=== PATIENT | male | born 1945 | race Caucasian/White ===

== ENCOUNTER → 2025-02-02 16:27 | Outpatient (REF) | payer MEDICARE, SELFPAY | LOC: RAD 16:27 | PROVIDERS: ATTENDING PHYSICIAN Internal Medicine Critical Care Medicine; FAMILY PHYSICIAN Family Medicine | DX: R06.02 Shortness of breath (principal) | CPT/HCPCS: 71046 ==

== ENCOUNTER 2025-02-05 20:18 | Inpatient (IN) | payer MEDICARE, SELFPAY ==
[2025-02-05] VITALS (7 sets, daily range): BP systolic 127–160; BP diastolic 82–119; BMI 26.6; BMI 26.8
--- NOTE | 2025-02-05 16:40 | ED.GENMED ---
History of Present Illness
General
Chief Complaint: Cardiac Symptoms
Source: patient
Exam Limitations: none
Time Seen by Provider: 02/05/25 16:24
History of Present Illness
History of Present Illness:
79yoM with a history of atrial fibrillation, coronary artery disease, and hyperlipidemia presenting for evaluation of tachycardia. Patient has had mild dyspnea over the past year. He was worried that he had COPD with his history of tobacco use so
went to see a plastics process hand 3 days ago. While in the office, he was noted to be tachycardic and was diagnosed with atrial fibrillation. He has been in contact with his senior sql server database developer and was given a prescription for Eliquis. He took his first dose
today. His metoprolol dose was also doubled. He had an echocardiogram today and heart rate was noted to be in the 140s during this test. He was called and instructed to go to the ED for evaluation. Patient is not sure how long he has been in
A-fib because he is relatively asymptomatic. He denies any chest pain, palpitations, dizziness, syncope. Echocardiogram today showed an EF of 25-30%.
Past History
Past History
ED Past Medical History: CAD and Hypercholesterolemia
ED Past Surgical History: Cardiac (PTCA with stent times 1999, 2010)
Social History
Tobacco: Smoker
Alcohol: Occasional
Personal: Single
Living: with family
Employment: Retired
Family History
Family History: Other (Noncontributory)
Phy Exam
General Physical Exam
General Presentation: well appearing and no apparent distress
General Skin: warm and dry
General Habitus: normal
General Mental: alert
ENT Exam
ENT Exam: normocephalic
Cardiovascular Exam
Cardiovascular Exam: no edema, irregularly irregular and tachycardia
Pulmonary Exam
Pulmonary Exam: lungs clear, no respiratory distress, no rales, no crackles, no rhonchi and no wheezing
Neurological Exam
Neurological Exam: alert
Curlew Coma Scale
Eye Opening: Spontaneous
Verbal Response: Oriented
Motor Response: Obeys Commands
GCS Total Score: 15
Skin Exam
Skin Exam: normal color and warm/dry
Psychiatric Exam
Psychiatric Exam: normal mood/affect
Course
Orders/Labs/Results
Orders:
Orders
02/05/25 Dinner
Cholesterol Lowering
At Your Request: Full Participation
Cholesterol Lowering: Sodium, 2 Gram
02/05/25 15:52
Electrocardiogram (*1) Urgent
Reason for Study: Atrial Fibrillation
EKG- Treatment ONCE
02/05/25 16:39
Cardiac Monitoring- Treatment ONCE
0.9% Sodium Chloride 500 ml [Nss] 500 ml IV BOLUS
Diltiazem HCl [Cardizem] 10 mg IV NOW STA
Venous Doppler Lwr Ext Rt [US Periph Venous LOWER Ext RT] Urgent
Comment:
Reason For Exam: R leg cramps
02/05/25 16:45
Diltiazem 125 mg/125 ml Nss [Cardizem] 125 mg in 125 ml IV PER PROTOCOL
Initial dose in mg/hr, then titrate:: 5
Titrate to keep:: Heart rate 80-100 bpm
Titrate by mg/hr:: 5 mg/hr
Frequency of titrations (minutes):: 15
Maximum dose in mg/hr:: 15
02/05/25 16:50
Complete Blood Count/With Diff Urgent
Comprehensive Metabolic Panel Urgent
Magnesium Urgent
NT-proBNP Urgent
TSH Reflex To Free T4 Urgent
02/05/25 19:48
Admit/Transfer Patient As Directed
Co-Sign Provider:
Level of Care: Inpatient admission
Assign to:: IVU
Physician / Group: Diogenes
Diagnosis: Rapid arial fibrillaion, CHF exacerbation
Reason for Hospitalization: Rapid afib
Expected length of stay greater than two midnights?: Yes
ELOS- Estimated Length of Stay in days: 2
I certify the patient meets the requirements for IP care: Yes
02/05/25 19:49
Code Status As Directed
Resuscitation Status: Full Code
02/05/25 21:39
Acetaminophen [Tylenol] 650 mg PO Q6HPRN PRN
Furosemide [Lasix] 40 mg IV NOW STA
Guaifenesin/Dextromethorphan [Robitussin Dm] 5 ml PO Q6HPRN PRN
Ipratropium/Albuterol Sulfate [Duoneb] 3 ml INH R Q4HPRN PRN
02/05/25 21:39
HF DIETARY CONSULT Routine
HF EDUCATOR CONSULT Routine
Comment:
VTE Contraindication Routine
VTE Mechanical Device Contraindication: Medical Contraindication
Pharmocologic Contraindication: Medical Contraindication
Activity As Directed
Activity Level: With Assistance
Intake/ Output As Directed
Frequency: Per unit guidelines
Orthostatic Vital Signs As Directed
Orthostatic VS Frequency: Daily
Patient Education As Directed
Type: CHF folder
Comment: give on admission. Document in Interdisciplinary Education record
Sleep Apnea Assessment by RN As Directed
Comment:
Physician Instructions:
Vital Signs As Directed
Frequency: Other
Additional Instructions:: Q12 or per unit guidelines if more frequent.
Weight As Directed
Frequency: Daily
Type of Scale: Standing Scale
Comment: Daily morning weight. If unable to stand, use balanced bed scale.
Weight As Directed
Frequency: Once
Type of Scale: Standing Scale
Comment: Upon Admission. If unable to stand, use balanced bed scale.
Pulse Ox/cont/shift [RESP] Routine
Quantity: 1
Special Instructions: Daily pulse oximetry at rest. If greater than 92% at rest also obtain pulse oximetry
while ambulating as tolerated.
Rx Incentive Spirometry [RESP] Routine
Frequency: q1h while awake
02/05/25 22:00
Apixaban [Eliquis] 5 mg PO BID
02/05/25 22:30
Doxycycline [Vibramycin] 100 mg PO Q12
02/06/25 Breakfast
NPO
Allow oral meds: Yes
Allow clear liquids: Sips of Clears
Basic Metabolic Panel IN AM
Cardiovascular Evaluation IN AM
Magnesium IN AM
Phosphorus IN AM
02/06/25 08:00
Aspirin Chewable [Low Strength Aspirin] 81 mg PO DAILY
Budesonide/Formoterol 80/4.5 [Symbicort 80/4.5 Mcg Inhaler] 2 puff INH R BID
Ezetimibe [Zetia] 10 mg PO DAILY
Finasteride [Proscar] 5 mg PO DAILY
Furosemide [Lasix] 40 mg PO DAILY
Metoprolol Xl [Toprol Xl] 25 mg PO DAILY
Multivitamin [Theragran] 1 tablet PO DAILY
Pantoprazole [Protonix] 40 mg PO DAILY
Rosuvastatin Calcium [Crestor] 10 mg PO DAILY
02/07/25 06:00
Basic Metabolic Panel IN AM
02/08/25 06:00
Basic Metabolic Panel IN AM
Abnormal Lab Results
02/05/25
16:50
MCV 94.8 H fL
(80.0-94.0)
MCH 32.4 H pg
(27.0-31.0)
MPV 11.1 H fL
(7.4-10.4)
Absolute Neuts (auto) 6.7 H 10^3/uL
(1.4-6.5)
Neutrophils % 77.5 H %
(42.2-75.2)
Lymphocytes % 16.3 L %
(20.5-51.1)
BUN 23 H mg/dl
(9-20)
Glucose 136 H mg/dl
(70-99)
Total Bilirubin 1.8 H mg/dl
(0.2-1.3)
Total Protein 6.2 L g/dl
(6.3-8.2)
02/05/25 16:50
02/05/25 16:50
Vital Signs
Initial and Last Documented VS:
Initial Vital Signs
Temp Pulse Resp BP Pulse Ox
98.5 F 161 16 160/119 96
02/05/25 15:53 02/05/25 15:53 02/05/25 15:53 02/05/25 15:53 02/05/25 15:53
Last Documented Vital Signs
Temp Pulse Resp BP Pulse Ox
97.5 F 79 20 145/96 98
02/05/25 22:17 02/05/25 22:18 02/05/25 20:56 02/05/25 20:56 02/05/25 21:52
MDM/Problems Addressed
Differential Diagnosis Includes:
79yoM here with tachycardia. Found to be in afib at an outpatient pulm appt 3 days ago. Went for an echo today and found to have a HR in the 140s so sent to the ED. Relatively asymptomatic currently. Denies CP/palpitations. Unclear how long patient
has bene in afib. HR 161 on arrival. BP stable. He is non-toxic appearing. Differential diagnosis includes but is not limited to: Atrial fibrillation, CHF, thyroid dysfunction, electrolyte abnormality
Initial ED plan: Check cardiac labs, magnesium, TSH. Patient also complaining of leg cramps and is worried about a DVT so we will order venous duplex. IV Cardizem for rate control.
*EKG
Interpreted by ED Provider?: Yes
EKG Intrepretation Date: 02/05/25
Heart Rate: 141
Rate: tachycardiac
Rhythm: a-fib and PVC's
[place]: normal axis
QRS Pattern: normal QRS
Ischemia: no ischemia
*Critical Care Note
Total Time (30-74mins, 75-104mins- exclusive of procedures): 35
Update Note
Update Note:
Labs show a BNP of 2400. Electrolytes and TSH normal. Echocardiogram from earlier today shows cardiomyopathy. Heart rate improved on Cardizem gtt. Patient admitted for further management.
ED Attending Note
-
Portions of this chart may have been created with voice recognition software.� Occasional wrong word or��sound alike� substitutions may have occurred due to the inherent limitations of voice recognition software.
Discharge Plan
Departure
Patient Disposition: Admit
Date of Disposition: 02/05/25
Time of Disposition: 19:07
Presentation/result/management discussed w/ accepting MD/DO: Hospitalist
Discharge Problem:
Atrial fibrillation with rapid ventricular response
Interventions
Interventions:
*Risk Screen - Suicide Last Done: 02/05/25 22:03
*General Assessment Last Done: 02/05/25 17:03
*Neglect/Abuse Screening Last Done: 02/05/25 15:54
*ED- Fall Risk Assessment Last Done: 02/05/25 17:03
*ED COVID-19 Vaccine History Last Done: 02/05/25 17:03
*Nursing Disposition Last Done: 02/05/25 21:47
ED- Pulmonary Assessment Last Done: 02/05/25 19:44
ED- Cardiac Assessment Last Done: 02/05/25 19:44
Discharge Date and Time
Discharge Date/Time: 02/05/25 21:48
[2025-02-05] MEDS: CARDIZEM 10 MG IV (16:56)
[2025-02-05] MEDS: NSS 500 IV (16:58)
[2025-02-05] MEDS: CARDIZEM 125 IV (16:59)
[2025-02-05 17:04] LABS: % Basophils 0.3 % (0-2); % Eosinophils 0.1 % (0-6); % Immature Granulocytes 0.2 % (0-0.5); % Lymphocytes 16.3 % (20.5-51.1); % Monocytes 5.6 % (1.7-9.3); % Neutrophils 77.5 % (42.2-75.2); Absolute Lymphocytes 1.4 10^3/uL (1.2-3.4); Absolute Monocytes 0.5 10^3/uL (0.1-0.6); Absolute Neutrophils 6.7 10^3/uL (1.4-6.5); Hematocrit 45.6 % (39.0-52.0); Hemoglobin 15.6 g/dL (13.0-18.0); Mean Corp Hgb Conc. 34.2 g/dL (33.0-37.0); Mean Corpuscular Hgb 32.4 pg (27.0-31.0); Mean Corpuscular Volume 94.8 fL (80.0-94.0); Mean Platelet Volume 11.1 fL (7.4-10.4); Nucleated Red Blood Cells % 0 % (-); Platelet Count 130 10^3/uL (130-400); Red Blood Cell Count 4.81 10^6/uL (4.70-6.10); Red Cell Dist. Width 13.9 % (11.5-14.5); White Blood Cell Count 8.6 10^3/uL (4.8-10.8)
[2025-02-05 17:23] LABS: ALT (SGPT) 28 U/L (0-50); AST (SGOT) 29 U/L (17-59); Albumin 3.8 g/dl (3.5-5.0); Alkaline Phosphatase 60 U/L (38-126); Blood Urea Nitrogen 23 mg/dl (9-20); Calcium 9.2 mg/dl (8.4-10.2); Carbon Dioxide 23 mmol/L (22-30); Chloride 107 mmol/L (98-107); Estimated Creatinine Clearance 51 ml/min; Glucose 136 mg/dl (70-99); Magnesium 1.7 mg/dl (1.6-2.3); Potassium 3.8 mmol/L (3.5-5.1); Sodium 139 mmol/L (135-145); Total Bilirubin 1.8 mg/dl (0.2-1.3); Total Protein 6.2 g/dl (6.3-8.2); eGFR > 60.00
[2025-02-05 17:24] LABS: NT-proBNP 2480 pg/ml
[2025-02-05 17:46] LABS: TSH Reflex To Free T4 1.22 uIU/ml (0.47-4.68)
--- NOTE | 2025-02-05 19:37 | HPS.HSE ---
Family Physician
-
Family Physician: Daniel Davis
Chief Complaint
-
Rapid atrial fibrillation
History of Present Illness
This is a 79-year-old with past medical history significant for recent diagnosis of COPD, CAD status post multiple stents in the past, GERD, hypertension who presents to the emergency department after being found to be in rapid atrial fibrillation
while getting echo.
Patient had a visit to pulmonary a few days ago where he was found to be in atrial fibrillation. His rate was not rapid at that time. Denied having any symptoms such as dizziness palpitations chest pain or lightheadedness. He reports that he has
had significant dyspnea on exertion for at least 1 year. He also reports some pain with ambulation in his lower extremities more felt on the right. He denies any leg swelling. He denies orthopnea or PND. He denied any recent weight gain or
weight loss. Unclear how long he has been in atrial fibrillation but reported that last year he did see cardiology and was not in atrial fibrillation at that time.
Patient had a follow-up with cardiology and had an echocardiogram with plans for a SINDY and possible cardioversion on February 12. He was started on Eliquis and metoprolol.
Following is pulmonary visit the patient was diagnosed with pneumonia and was started on doxycycline. He started taking the doxycycline 2 days ago for a total of 10 doses. Overall this the patient denies any changes in his cough, denies any fevers
or chills. He denies any worsening of his exertional dyspnea.
He had an echocardiogram today showing an EF of 25 to 30%. He was in rapid A-fib at a rate of 140. On arrival in the emergency department was as high as 160.
Blood pressure was 128/82 currently pulse rate is 88 and was satting 90% on room air.
ECG shows atrial fibrillation at rate of 160.
BNP was elevated at 2480.
CBC was unremarkable. Electrolytes stable with potassium of 3.8 BUN/creatinine of 23 and 1.1.
TSH was 1.2.
Chest x-ray from 02 02 shows a left basilar consolidation.
Ultrasound of the right lower extremity is negative for DVT
Medical History
Past Medical History
Past Medical History: Reports CAD (Status post 5 stents to LAD stent in 2010), COPD, GERD and HTN
Past Surgical History: Reports None
Social History
Tobacco: Smoker
Alcohol: None
Drug: None
Personal: Single
Living: Alone
Employment: Employed
Family History
Family History: Not pertinent
Allergies / Home Medications
Allergies reflects when Allergies were last updated in [employer].
Home Medications with original date entered in [employer]
Allergy/Medication List:
Allergies
Allergy/AdvReac Type Severity Reaction Status Date / Time
No Known Allergies Allergy Verified 01/23/21 04:45
Home Medications
aspirin 81 mg chewable tablet 81 mg PO DAILY Heart Disease/Condition 05/20/11
apixaban 5 mg tablet (Eliquis) 5 mg PO BID Blood Clot Prevention/Tx 02/05/25
doxycycline hyclate 100 mg capsule 100 mg PO Q12 Infection 02/05/25
ezetimibe 10 mg tablet (Zetia) 10 mg PO DAILY High Cholesterol 02/05/25
finasteride 5 mg tablet 5 mg PO DAILY BPH 02/05/25
fluticasone fur. 100 mcg-umeclid 62.5 mcg-vilant 25 mcg inhalat.powder (Trelegy Ellipta) 1 inh inhalation DAILY Lung/Breathing Issues 02/05/25
metoprolol succinate 25 mg tablet,extended release 24 hr 25 mg PO DAILY Blood Pressure 02/05/25
multivitamin 1 tab PO DAILY Supplement 02/05/25
omeprazole 20 mg capsule,delayed release 20 mg PO DAILY Gastrointestinal Issue 02/05/25
rosuvastatin 10 mg tablet 10 mg PO DAILY High Cholesterol 02/05/25
Review of Systems
-
Constitutional: Reports No Symptoms
EENT: Reports No Symptoms
Respiratory: Reports Other (dyspnea on exertion)
Cardiac: Reports No Symptoms
Abdomen/GI: Reports No Symptoms
: Reports No Symptoms
Musculoskeletal: Reports No Symptoms
Skin: Reports No Symptoms
Neurological: Reports No Symptoms
Endocrine: Reports No Symptoms
Hematologic/Lymphatic: Reports No Symptoms
Psych: Reports No Symptoms
Physical Exam
Vital Signs
Vital Signs
Temp Pulse Resp BP Pulse Ox
98.5 F 88 25 128/82 93
02/05/25 15:53 02/05/25 18:00 02/05/25 16:49 02/05/25 17:00 02/05/25 17:04
Physical Exam
General: Well Developed
HEENT: NormoCephalic, Moist mucous membranes and Atraumatic
Respiratory: Crackles (Left basilar crackles, occasional wheezes)
Cardiac: S1/S2, Irregular Rhythm and Peripheral Edema; No Murmur or Rub
GI: Soft, Non Tender, Non Distended and Normal Bowel Sounds; No Organomegaly
Rectal: Deferred by Provider
Musculoskeletal: No Clubbing, No Cyanosis, Edema, Left Lower Extremity (1+) and Edema, Right Lower Extremity (1+)
Skin: No Rash
Neuro: AO x 3 and Nonfocal/grossly intact
Hematologic/Lymphatic: No Lymphadenopathy
Psych: Calm
Laboratory Results
-
02/05/25 16:50
02/05/25 16:50
Laboratory Results
Total Bilirubin 1.8 mg/dl (0.2-1.3) H 02/05/25 16:50
AST 29 U/L (17-59) 02/05/25 16:50
ALT 28 U/L (0-50) 02/05/25 16:50
Alkaline Phosphatase 60 U/L (38-126) 02/05/25 16:50
Data Reviewed
-
Diagnostic Radiology: Image Personally Visualized and interpreted and Report Reviewed by me
Medical Tests (Nuc Med, Echo, EKG etc): Image Personally Visualized and interpreted
Lab Data: Labs Reviewed by me
Old Records: Reviewed
Impression/Plan
-
IMPRESSION:
79-year-old presenting to the emergency department with rapid atrial fibrillation, has no symptomatic complaints otherwise.
Patient recently diagnosed with atrial fibrillation on routine visit to pulmonary. At the time he also had a left lower lobe pneumonia and was started on doxycycline. He has been recently started on Eliquis and had an echocardiogram which showed
an EF of 25 to 30% which is decreased from his prior EF of around 45% in 2021. He was found to be in rapid atrial fibrillation in the 140s at the echo and was sent to the emergency department. Patient is hemodynamically stable in the Emergency
Department, on diltiazem drip his rate is in the 80s 200s still atrial fibrillation. He appears to have mild symptoms of CHF with 1+ bilateral peripheral edema and some crackles on exam which may be due to the pneumonia versus pulmonary congestion.
BNP is elevated at 2000. He has minimal signs of COPD exacerbation at this time. He
PLAN:
Repeat atrial fibrillation
- Admit to IVU
- Continue diltiazem drip for now, plan is to uptitrate metoprolol, will increase to 50 mg metoprolol succinate daily, give 25 mg p.o. now
- Continue Eliquis at 5 mg p.o. twice daily
- TSH within normal limits, echo has been checked already and reduced
- N.p.o. with breakfast for possible early SINDY, likely patient does not need annual follow-up with cardiology for his SINDY that is scheduled on 12 February
- Cardiology consult
CHF -subacute decline in EF, trace to 1+ peripheral edema suggestive of exacerbation. Known CAD status post stenting but no current signs of acute ischemic disease.
-Start with Lasix 40 mg p.o. daily
- Daily weights
- Salt and fluid restriction
-Check A1c
- Continue rate control with metoprolol, additional GDMT per cardiology
- Cardiology consult
Pneumonia
- Doxycycline p.o. every 12
- Continue with Trelegy
- As needed DuoNebs
- No indication for steroids at this time
DVT prophylaxis�on apixaban
CODE STATUS�full code
[2025-02-05] MEDS: LOPRESSOR 25 MG PO (20:33)
[2025-02-05] MEDS: TYLENOL 650 MG PO (20:53)
[2025-02-05] MEDS: LASIX 40 MG IV (22:18)
[2025-02-05] MEDS: KCL 40 MEQ PO (22:19)
[2025-02-05] MEDS: ELIQUIS 5 MG PO (22:19)
[2025-02-05] MEDS: VIBRAMYCIN 100 MG PO (22:19)
--- NOTE | 2025-02-05 22:39 | PTCARENOTE ---
Patient arrived into room 3349 from ER. [facility] gtt infusing @ 5mg/hr. Pt ambulated from stretcher to the bed. Steady gait. Afib on tele, HR 70-90s. Pt denies pain; reports leg cramps have subsided since received po tylenol. Admission questions
done. Pt updated on plan of care; NPO @ [place] for SINDY/CV. IV Lasix administered per the MAR; pt verbalized understanding the importance of accurate I/Os. Avinger box provided as pt stated he has not eaten all day. denies nutrition consult. call herbert and
tray table within reach.
[2025-02-06] VITALS (20 sets, daily range): BP systolic 96–147; BP diastolic 60–102; PULSE 65–113; BMI 26.1
[2025-02-06 05:23] LABS: Blood Urea Nitrogen 23 mg/dl (9-20); Carbon Dioxide 28 mmol/L (22-30); Chloride 108 mmol/L (98-107); Estimated Creatinine Clearance 46 ml/min; Glucose 92 mg/dl (70-99); HDL Cholesterol 45 mg/dl; LDL Cholesterol, Calculated 37 mg/dl; Magnesium 1.7 mg/dl (1.6-2.3); Phosphorus 3.5 mg/dl (2.5-4.5); Potassium 4.3 mmol/L (3.5-5.1); Sodium 141 mmol/L (135-145); Total Cholesterol 97 mg/dl (50-199); Triglyceride 78 mg/dl (10-149); Very Low Density Lipoprotein 15 mg/dl (0-30); eGFR > 60.00
--- NOTE | 2025-02-06 05:31 | PTCARENOTE ---
Patient voided about 1900cc of urine since IV Lasix administration last night. Cardizem gtt stopped this morning; refer to worklist. Afib on tele. HR 60s. BP soft. Asymptomatic.
[2025-02-06] MEDS: SPIRIVA RESPIMAT 2.5 MCG 2 PUFF INH (07:30)
[2025-02-06] MEDS: SYMBICORT 80/4.5 MCG INHALER 2 PUFF INH ×2 (07:31→19:34)
[2025-02-06] MEDS: CRESTOR 10 MG PO (07:52)
[2025-02-06] MEDS: LASIX 40 MG PO (07:52)
[2025-02-06] MEDS: THERAGRAN 1 TABLET PO (07:52)
[2025-02-06] MEDS: ZETIA 10 MG PO (07:53)
[2025-02-06] MEDS: TOPROL XL 25 MG PO (07:54)
[2025-02-06] MEDS: PROSCAR 5 MG PO (07:54)
[2025-02-06] MEDS: ELIQUIS 5 MG PO ×2 (07:54→19:55)
[2025-02-06] MEDS: VIBRAMYCIN 100 MG PO ×2 (07:54→19:55)
[2025-02-06] MEDS: PROTONIX 40 MG PO (07:55)
--- NOTE | 2025-02-06 08:29 | CON.CAR ---
Addendum entered and electronically signed by Len Butler MD 02/06/25 10:29:
I saw and examined the patient.
The Sander Setter's note was reviewed and I agree with the note.
Comment:
GEN: No distress, awake, Ox3
HEENT: supple, anicteric, mmm
LUNGS: scatt rhonchi
CV: Irreg, S1/S2, 09/08 syst LSB, no gallop
ABD: soft, BS+, NT/ND
EXT: No edema
NEURO: Gross non-focal
SKIN: No rash
Plan:
79-year-old male with past medical history of multivessel coronary artery disease/AR, COPD with continued tobacco use, hypertension, hyperlipidemia presents with progressive shortness of breath and dyspnea over the past several months. He was seen
earlier this week by pulmonary and cardiology office with new atelectasis and new onset atrial fibrillation with rapid ventricular rates. He was initiated on Eliquis and his Toprol was increased. He had an echocardiogram on February 06 with revealed a
decreased EF of 25 to 30% and was sent to the emergency room for further evaluation. He denies chest pain, shortness of breath, orthopnea but does have some intermittent leg edema and fatigue.
I reviewed his echocardiogram from yesterday and compared it to the study in September 2021. Ejection fraction has declined although it appears to be globally hypokinetic, this clearly could be from atrial fibrillation.
We will start with checking a troponin. If troponin is normal I would pursue rhythm control and address his atrial fibrillation first. He is now off the Cardizem drip and remains in rate controlled A-fib. I would increase his Toprol to 25 mg
twice daily. And continue Eliquis if the troponin is negative. We would then reassess him in the a.m. to decide whether he needs to stay as an inpatient for SINDY cardioversion or whether this could be done as an outpatient. He already has this
scheduled for mid next week.
If his troponin is abnormal, we would stop Eliquis, start IV heparin and pursue cardiac catheterization on Sunday. For now continue medical therapy for his coronary artery disease. Continue aspirin, Toprol, Crestor, Zetia, and lisinopril. EKG
with A-fib with nonspecific T wave abnormalities.
He does have some acute heart failure with reduced ejection fraction. Will give additional Lasix 20 mg IV today to help unload his ventricle some.
Continue Toprol and lisinopril. Will check on cost of Farxiga for him.
We discussed smoking cessation. He should continue his Symbicort and Spiriva.
Original Note:
Consultation
Consultation Request
Date/Time Consultation Requested: 02/05/2025
Date/Time Consultation Performed: 02/05/2025
Requesting Provider: Dr. Shetty
Performing Provider: Anais Velez PA-C for Dr. Butler
Reason for Consultation: A-fib with rapid ventricular response, heart failure, new cardiomyopathy
Medical History
-
History of Present Illness:
Patient is an 79-year-old male with past medical history significant for coronary artery disease with prior AR and stenting of OM, circumflex, LAD and RCA, COPD with ongoing tobacco abuse, hypertension, hyperlipidemia, BPH and GERD who reports
progressively worsening dyspnea on exertion over the last 2 months. Some orthopnea/PND recently as well. No weight gain or edema, actually has lost weight. He was seen by outpatient senior government program analyst on 02/02/2025 who ordered chest x-ray which
demonstrated concern for pneumonia versus left basilar atelectasis. He was found to be in atrial fibrillation with rapid ventricular response which was new diagnosis. He was seen in outpatient cardiology office on 02/04/2025 and was started on
Eliquis with up titration of Toprol. Symptoms continued to get worse so he presented to emergency department 02/05/2025. He remained in atrial fibrillation with rapid ventricular response, proBNP noted to be elevated at 2480. He was provided 40 mg
IV Lasix and was started on IV diltiazem drip. Diltiazem gtt d/marly in am of 02/06 for hypotension/bradycardia and pauses. He underwent an echocardiogram which demonstrated newly reduced ejection fraction of 25 to 30%.
Currently patient denies CP, SOB, dizziness, palpitations, edema or orthopnea/PND.
Past medical history:
Coronary artery disease
History of STEMI 2001, 2010
s/p stent of proximal OM1 and circumflex 04/2000
s/p LAD STEVE x 2 mid to distal LAD 05/2011
s/p STEVE of distal RCA into RPDA 05/2011
Hypertension
Hyperlipidemia
BPH
COPD
Ongoing tobacco user
GERD
Lumbar spine stenosis
Past Medical History
Past Medical History: Other (See HPI)
Past Surgical History: Cardiac (OM1 and circumflex stent 2001, RCA/RPDA stent 2010, LAD stent times 10/2010) and Other (Cataract extraction, thumb surgery)
Social History
Tobacco: Smoker
Drug: None
Personal:
Family History
Family History: Other (Father of stroke, had CAD, mother COPD and alcohol abuse)
Allergies / Home Medications
Allergy/AdvReac Type Severity Reaction Status Date / Time
No Known Allergies Allergy Verified 01/23/21 04:45
�Medication �Instructions �Recorded �Confirmed �Type
aspirin 81 mg chewable tablet 81 mg PO DAILY Heart 05/20/11 02/05/25 History
Disease/Condition
apixaban 5 mg tablet (Eliquis) 5 mg PO BID Blood Clot 02/05/25 02/05/25 History
Prevention/Tx
doxycycline hyclate 100 mg capsule 100 mg PO Q12 Infection 02/05/25 02/05/25 History
ezetimibe 10 mg tablet (Zetia) 10 mg PO DAILY High Cholesterol 02/05/25 02/05/25 History
finasteride 5 mg tablet 5 mg PO DAILY BPH 02/05/25 02/05/25 History
fluticasone fur. 100 mcg-umeclid 1 inh inhalation DAILY 02/05/25 02/05/25 History
62.5 mcg-vilant 25 mcg Lung/Breathing Issues
inhalat.powder (Trelegy Ellipta)
metoprolol succinate 25 mg 25 mg PO DAILY Blood Pressure 02/05/25 02/05/25 History
tablet,extended release 24 hr
multivitamin 1 tab PO DAILY Supplement 02/05/25 02/05/25 History
omeprazole 20 mg capsule,delayed 20 mg PO DAILY Gastrointestinal 02/05/25 02/05/25 History
release Issue
rosuvastatin 10 mg tablet 10 mg PO DAILY High Cholesterol 02/05/25 02/05/25 History
Review of Systems
-
History Source: Patient
All other systems: Negative unless noted
Physical Exam
Vital Signs
Temp Pulse Resp BP Pulse Ox
98.4 F 79 16 120/89 96
02/06/25 05:51 02/06/25 07:54 02/06/25 07:37 02/06/25 07:54 02/06/25 07:37
GEN: No distress, awake, Ox3
HEENT: supple, anicteric, mmm
LUNGS: absent BS at right base and crackles at left base, no wheezes
CV: irreg irreg, S1/S2, no murmur, rub or gallop
ABD: soft, BS+, NT/ND
EXT: No edema, clubbing or cyanosis
NEURO: Gross non-focal
SKIN: No rash, warm. dry
Lab Results
02/05/25 16:50
02/06/25 04:22
[id number]-V-[id number] Pept 2480 pg/ml 02/05/25 16:50
Impression / Plan
-
PCP: Daniel Davis
Oven Drier Tender: Dr. Pramod Mckenna
Impression:
Presented 02/05/2025 with ongoing shortness of breath
Atrial fibrillation with rapid ventricular response, new diagnosis
Acute heart failure with reduced ejection fraction, proBNP 2480
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
Pneumonia
Coronary artery disease
History of STEMI 2010
s/p stent of proximal OM1 and circumflex 04/2000
s/p LAD STEVE x 2 mid to distal LAD 05/2011
s/p STEVE of distal RCA into RPDA 05/2011
Hypertension
Hyperlipidemia
BPH
COPD
Ongoing tobacco user
GERD
Lumbar spine stenosis
Echo 02/05/2025: EF 25 to 30%, global hypokinesis. Mild to moderate MR. Mild to moderate AI. Mild TR. PAP 40 mmHg. Dilated sinus of Valsalva 4.0 cm. Ascending aorta and aortic arch are normal in caliber.
Echo 09/15/2021: EF 45 to 50%. Global hypokinesis. Stage I DD. Mild to moderate AI. PAP 25 mmHg
Exercise nuclear stress test 07/23/2017: 6: 00, 7.0 METS, 96% maximum predicted heart rate. EKG negative for ischemia. Minimally reversible defect in lateral, inferolateral and apical segment consistent with infarction with minor residual ischemia
versus soft tissue attenuation
Plan:
-Presented 02/05/2025 with worsening shortness of breath for 2 months and recent orthopnea/PND. Concern for pneumonia on outpatient chest x-ray 02/02/2025 and new diagnosis of paroxysmal atrial fibrillation with rapid ventricular response of unknown
duration
-Atrial fibrillation with rapid ventricular response unknown duration.
Heart rates improved with IV Diltiazem gtt. Found to have bradycardia w/ pauses and hypotension so gtt stopped in am of 02/06. Heart rates remain controlled off gtt.
Continue Toprol. Consider increase to 25 mg BID of HR and BP allows
New to Eliquis 02/04. Continue OAC
Likely would benefit from islam of sinus rhythm. Timing to be determined by potential ischemia eval given newly reduced EF
-Acute heart failure with reduced ejection fraction, proBNP 2480
Cardiomyopathy, EF 25-30% (new finding). Unclear if ischemic related or tachycardia mediated given PAF w/ RVR
ECG without ischemic changes and pt denies CP. Check troponin
Will need to consider ischemic eval
Continue Toprol, Add Lisinopril 5 mg daily (02/06/2025)
Ongoing diuresis with Lasix
Heart failure education
-Pneumonia
Continue antibiotics per primary service
Plan discussed with pt, nursing and primary service
time spent 77 minutes
HPI 02/06/2025:
Patient is an 79-year-old male with past medical history significant for coronary artery disease with prior AR and stenting of OM, circumflex, LAD and RCA, COPD with ongoing tobacco abuse, hypertension, hyperlipidemia, BPH and GERD who reports
progressively worsening dyspnea on exertion over the last 2 months. Some orthopnea/PND recently as well. No weight gain or edema, actually has lost weight. He was seen by outpatient senior government program analyst on 02/02/2025 who ordered chest x-ray which
demonstrated concern for pneumonia versus left basilar atelectasis. He was found to be in atrial fibrillation with rapid ventricular response which was new diagnosis. He was seen in outpatient cardiology office on 02/04/2025 and was started on
Eliquis with up titration of Toprol. Symptoms continued to get worse so he presented to emergency department 02/05/2025. He remained in atrial fibrillation with rapid ventricular response, proBNP noted to be elevated at 2480. He was provided 40 mg
IV Lasix and was started on IV diltiazem drip. Diltiazem gtt d/marly in am of 02/06 for hypotension/bradycardia and pauses. He underwent an echocardiogram which demonstrated newly reduced ejection fraction of 25 to 30%.
Currently patient denies CP, SOB, dizziness, palpitations, edema or orthopnea/PND.
Data Reviewed
-
EKG: Report Reviewed by me, Discussed with Physician, Discussed with Nurse and Discussed with Patient
Radiology: Report Reviewed by me, Discussed with Physician, Discussed with Nurse and Discussed with Patient
Medical Tests (Nuc Med, Echo etc): Report Reviewed by me, Discussed with Physician, Discussed with Nurse and Discussed with Patient
Labs: Labs Reviewed by me, Discussed with Physician, Discussed with Nurse and Discussed with Patient
Old Records: Reviewed
--- NOTE | 2025-02-06 09:02 | PTCARENOTE ---
Patient received from retail shift manager. Patient resting comfortably in bed. AAO, VSS. No events noted overnight. No complaints of pain. Patient is IVU overflow. No fluids via IV. Cardizem gtt has been off since approx 0400 this AM and rate remains
appropriate. Patient for possible SINDY with cardioversion. Call godinez in reach.
[2025-02-06] MEDS: ZESTRIL 5 MG PO (10:26)
[2025-02-06 12:57] LABS: Troponin I 0.205 ng/ml
--- NOTE | 2025-02-06 13:24 | W.PN.HOSP.TC ---
Today's Communication/Plan
-
Assessment / Plan
Assessment / Plan
General: No Apparent Distress, Comfortable and Conversant
HEENT: NormoCephalic, Moist mucous membranes, Atraumatic
Respiratory: Clear and Non Labored Respirations
Cardiac: S1/S2 and irregular rhythm; heart rate 80-110
GI: Soft, Non Tender, Non Distended and Normal Bowel Sounds
Musculoskeletal: No Edema, no deformity
Skin: Warm and dry
: NO Rivas
Neuro: Awake, Alert, Nonfocal/grossly intact
Psych: Calm and Intact Judgment/Insight
Mr. Albright is an 79-year-old male with a medical history of CAD (multiple stents), hypertension, and recent diagnosis of COPD and pneumonia who presented after being found to be in rapid A-fib while getting an echocardiogram. He was initially noted
to be in A-fib a few days prior to arrival during his outpatient pulmonology evaluation, however his heart rate was well-controlled at that time. A-fib is a new diagnosis for him. He denies any specific symptoms recently although he does note
significant dyspnea on exertion for the past year and was recently diagnosed with COPD by his crm marketing manager. He had been started on Eliquis and metoprolol and had a planned appointment for SINDY and possible cardioversion on 02/12/2025. He was
started on doxycycline 2 days prior to arrival for treatment of left lower lobe pneumonia diagnosed by his crm marketing manager during office visit. In the ED he was in A-fib with a heart rate of 140. He remained normotensive and was breathing
comfortably and saturating appropriately on room air. His echocardiogram shows significantly reduced ejection fraction of 25 to 30% with global hypokinesis. He was started on diltiazem drip and admitted for further evaluation and management.
A-fib with RVR:
- New diagnosis
- Heart rate currently well-controlled on oral metoprolol succinate 25 mg daily
- Diltiazem drip discontinued
- Continue anticoagulation with Eliquis
- Ischemic evaluation ongoing, if troponins elevated and uptrending most once anticoagulation to IV heparin and plan for cardiac cath on Sunday
- Appreciate cardiology guidance
HFrEF:
- New diagnosis, EF 25 to 30% with global hypokinesis
- Unclear etiology, ischemic workup ongoing, possibly due to longstanding undiagnosed A-fib
- Currently appears compensated
- Continue beta-blockade with metoprolol succinate 25 mg daily
- Afterload reduction with lisinopril 5 mg daily
- Diuresis with oral Lasix 40 mg daily for now
COPD:
- Recent diagnosis by outpatient crm marketing manager
- Continue scheduled breathing treatments with additional as needed
- Encourage smoking cessation
Community-acquired pneumonia:
- Left lower lobe
- Continue doxycycline
- Pulmonary toileting
CAD:
- Chronic, stable, history of PCI with multiple stents
- Continue aspirin and statin
DVT prophylaxis: Eliquis
CODE STATUS: Full code
Total time spent on today's encounter was 40 minutes
Anticipated Discharge: > 48 hours
Subjective/Interval History
-
Date of Service: February 06, 2025
Patient was seen and examined at bedside this morning. Reports feeling well despite dealing with rapid A-fib, COPD, and pneumonia. Heart rate currently better controlled at rest but does have spikes with exertion.
Objective Data
-
Labs:
Laboratory Results
02/06/25
04:22
Sodium 141
Potassium 4.3
Chloride 108 H
Carbon Dioxide 28
BUN 23 H
Creatinine 1.2
Glucose 92
Calcium 9.0
Vital Signs:
Vital Signs
Temp Pulse Resp BP Pulse Ox
97.7 F 88 16 133/97 96
02/06/25 11:09 02/06/25 10:26 02/06/25 07:37 02/06/25 10:26 02/06/25 07:37
I&O
02/05/25 02/06/25 02/07/25
06:59 06:59 06:59
Intake Total 240 / 240
Output Total 1924
Balance -1684 /
Review of Systems
-
History Source: Patient
All other systems: Reviewed and negative
Physical Exam
-
General: No Apparent Distress
--- NOTE | 2025-02-06 14:59 | PTCARENOTE ---
Report called to [facility].
--- NOTE | 2025-02-06 15:44 | PTCARENOTE ---
Patient transported to via volunteer transport. Patient left with all known belongings.
--- NOTE | 2025-02-06 16:29 | PTCARENOTE ---
Received pt from IMU via wheelchair, accompanied by volunteer. Pt AAO x3, MATTHEWS well, able to transfer to bed without assistance; denies weakness/dizziness. VSS. Placed on telemetry: afib. On room air- pulse ox 97%, no SOB noted. Abd soft,
rounded, BS (+). Urinal at bedside; pt instructed to void in urinal to monitor output. Afebrile; skin W/D/I. Oriented to 4[place],currently resting comfortably. Will continue to monitor.
[2025-02-07 03:05] VITALS: BP 121/77
[2025-02-07 06:00] VITALS: BMI 25.6
[2025-02-07 07:15] VITALS: BP 147/96
[2025-02-07 07:37] LABS: Blood Urea Nitrogen 21 mg/dl (9-20); Calcium 8.7 mg/dl (8.4-10.2); Carbon Dioxide 28 mmol/L (22-30); Chloride 105 mmol/L (98-107); Estimated Creatinine Clearance 46 ml/min; Glucose 89 mg/dl (70-99); Potassium 3.8 mmol/L (3.5-5.1); Sodium 140 mmol/L (135-145); eGFR > 60.00
[2025-02-07] MEDS: NON-FORMULARY ITEM 1 INH INH (08:19)
[2025-02-07] MEDS: PROTONIX 40 MG PO (09:13)
[2025-02-07] MEDS: CRESTOR 10 MG PO (09:14)
[2025-02-07] MEDS: TOPROL XL 25 MG PO ×2 (09:14→19:52)
[2025-02-07] MEDS: ZETIA 10 MG PO (09:14)
[2025-02-07] MEDS: VIBRAMYCIN 100 MG PO ×2 (09:14→19:52)
[2025-02-07] MEDS: PROSCAR 5 MG PO (09:15)
[2025-02-07] MEDS: ZESTRIL 5 MG PO (09:15)
[2025-02-07] MEDS: ELIQUIS 5 MG PO (09:15)
[2025-02-07] MEDS: LASIX 40 MG PO (09:15)
[2025-02-07] MEDS: THERAGRAN 1 TABLET PO (09:15)
[2025-02-07 11:05] VITALS: BP 146/85
--- NOTE | 2025-02-07 11:22 | CM ---
CM met with pt at bedside.
Pt lives alone 2 story condo with no concerns. Ind prior to admit with amb/adl's using no AD.
+ Poker Dealer.
PCP is Daniel Davis and pharmacy is [facility].
No HC or SNF history.
Anticipated dispo home no needs.
--- NOTE | 2025-02-07 11:50 | W.PN.CARDCBS ---
Today's Communication / Plan
-
Stop Eliquis
Start heparin
Increase metoprolol
Add spironolactone
Eventual SGLT2 antagonist cath on Sunday
Impression / Plan
-
PCP: Daniel Davis
Die Cast Engineer: Dr. Pramod Mckenna
Impression:
Presented 02/05/2025 with ongoing shortness of breath
Atrial fibrillation with rapid ventricular response, new diagnosis
Acute heart failure with reduced ejection fraction, proBNP 2480
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
Pneumonia
Coronary artery disease
History of STEMI 2010
s/p stent of proximal OM1 and circumflex 04/2000
s/p LAD STEVE x 2 mid to distal LAD 05/2011
s/p STEVE of distal RCA into RPDA 05/2011
Hypertension
Hyperlipidemia
BPH
COPD
Ongoing tobacco user
GERD
Lumbar spine stenosis
Echo 02/05/2025: EF 25 to 30%, global hypokinesis. Mild to moderate MR. Mild to moderate AI. Mild TR. PAP 40 mmHg. Dilated sinus of Valsalva 4.0 cm. Ascending aorta and aortic arch are normal in caliber.
Echo 09/15/2021: EF 45 to 50%. Global hypokinesis. Stage I DD. Mild to moderate AI. PAP 25 mmHg
Exercise nuclear stress test 07/23/2017: 6: 00, 7.0 METS, 96% maximum predicted heart rate. EKG negative for ischemia. Minimally reversible defect in lateral, inferolateral and apical segment consistent with infarction with minor residual ischemia
versus soft tissue attenuation
Plan:
Despite his reduced EF and A-fib with relatively rapid ventricular response he looks fairly well.
Currently on Eliquis. He is to undergo cardiac catheterization on Sunday. Will stop Eliquis and start heparin.
Add spironolactone as part of optimizing GDMT. Probably also be SGLT2 antagonist, could consider Entresto over ERIKA.
Now on oral Lasix. Volume status is reasonable.
His ventricular response is still somewhat rapid. Will double metoprolol ER to 25 mg twice daily.
After catheterization we can decide best strategy regarding his rhythm. He has been added to the schedule for Sunday.
Encouraged to stop smoking.
Defer antibiotics to hospitalist service.
HPI 02/06/2025:
Patient is an 79-year-old male with past medical history significant for coronary artery disease with prior PR and stenting of OM, circumflex, LAD and RCA, COPD with ongoing tobacco abuse, hypertension, hyperlipidemia, BPH and GERD who reports
progressively worsening dyspnea on exertion over the last 2 months. Some orthopnea/PND recently as well. No weight gain or edema, actually has lost weight. He was seen by outpatient sas clinical programmer on 02/02/2025 who ordered chest x-ray which
demonstrated concern for pneumonia versus left basilar atelectasis. He was found to be in atrial fibrillation with rapid ventricular response which was new diagnosis. He was seen in outpatient cardiology office on 02/04/2025 and was started on
Eliquis with up titration of Toprol. Symptoms continued to get worse so he presented to emergency department 02/05/2025. He remained in atrial fibrillation with rapid ventricular response, proBNP noted to be elevated at 2480. He was provided 40 mg
IV Lasix and was started on IV diltiazem drip. Diltiazem gtt d/marly in am of 02/06 for hypotension/bradycardia and pauses. He underwent an echocardiogram which demonstrated newly reduced ejection fraction of 25 to 30%.
Currently patient denies CP, SOB, dizziness, palpitations, edema or orthopnea/PND.
Progress Note - Die Cast Engineer
Subjective
Date of Service: February 07, 2025:
79-year-old man admitted February 05 with worsening dyspnea on exertion, with newly discovered atrial fibrillation February 02. Despite Toprol and Eliquis, dyspnea worsened, proBNP 2480, was admitted with new EF of 25 to 30%, troponin elevated to 0.22.
PMH: STEMI 2001, 2010, PCI to OM1 and circumflex 1999, LAD drug-eluting stent x 2 mid and distal LAD 2010, drug-eluting stent to distal RCA in 2 right PDA 2010, hypertension, hyperlipidemia, COPD, ongoing tobacco use, GERD, lumbar stenosis
Current meds: Apixaban 5 mg p.o. twice daily Doxycycline 100 mg every 12, ezetimibe 10 mg a day, Proscar 5 mg daily, metoprolol ER 25 mg daily, pantoprazole 40 mg a day, rosuvastatin 10 mg a day, furosemide 40 mg daily, lisinopril 5 mg daily, Trelegy
He says that he feels well.
147/96, 121/77, respiratory 16, afebrile, sats 94%, weight is 74 kg, down 1.6 kg, if accurate 4 kg since admission, head neck exam unremarkable, some rhonchi, lungs otherwise relatively clear JVD okay, regular rate and rhythm, not much edema
BUN/creatinine are 21 and 1.2, potassium is 3.8
Objective
Labs:
02/05/25 16:50
02/07/25 06:23
Labs
Hgb 15.6 g/dL (13.0-18.0) 02/05/25 16:50
Hct 45.6 % (39.0-52.0) 02/05/25 16:50
Plt Count 130 10^3/uL (130-400) 02/05/25 16:50
Sodium 140 mmol/L (135-145) 02/07/25 06:23
Potassium 3.8 mmol/L (3.5-5.1) 02/07/25 06:23
BUN 21 mg/dl (9-20) H 02/07/25 06:23
Creatinine 1.2 mg/dL (0.7-1.3) 02/07/25 06:23
Glucose 89 mg/dl (70-99) 02/07/25 06:23
Troponins
02/06/25 02/06/25
12:18 18:01
Troponin I 0.205 H* 0.220 H*
Vital Signs and I&O:
Vital Signs
Temp Pulse Resp BP Pulse Ox
36.2 C 92 16 147/96 94
02/07/25 07:15 02/07/25 09:14 02/07/25 08:22 02/07/25 09:14 02/07/25 08:22
Vital Signs
Temp Pulse Resp BP Pulse Ox
36.2 C 92 16 147/96 94
02/07/25 07:15 02/07/25 09:14 02/07/25 08:22 02/07/25 09:14 02/07/25 08:22
Intake & Output
02/05/25 02/06/25 02/07/25 02/08/25
07:59 07:59 07:59 07:59
Intake Total 240 / 240 960 / 960
Output Total 1925 / 1925 1150 / 1150
Balance -1685 / -1685 -190 / -190
Physical Exam
Physical Exam
See above
[2025-02-07 12:36] LABS: Hematocrit 48.4 % (39.0-52.0); Hemoglobin 16.9 g/dL (13.0-18.0); Mean Corp Hgb Conc. 34.9 g/dL (33.0-37.0); Mean Corpuscular Hgb 32.8 pg (27.0-31.0); Mean Platelet Volume 11.1 fL (7.4-10.4); Platelet Count 145 10^3/uL (130-400); Red Blood Cell Count 5.15 10^6/uL (4.70-6.10); Red Cell Dist. Width 13.7 % (11.5-14.5); White Blood Cell Count 8.3 10^3/uL (4.8-10.8)
--- NOTE | 2025-02-07 12:40 | W.PN.HOSP.TC ---
Today's Communication/Plan
-
Assessment / Plan
Assessment / Plan
General: No Apparent Distress, Comfortable and Conversant
HEENT: NormoCephalic, Moist mucous membranes, Atraumatic
Respiratory: Clear and Non Labored Respirations
Cardiac: S1/S2 and irregular rhythm; heart rate 80-100
GI: Soft, Non Tender, Non Distended and Normal Bowel Sounds
Musculoskeletal: No Edema, no deformity
Skin: Warm and dry
: NO Rivas
Neuro: Awake, Alert, Nonfocal/grossly intact
Psych: Calm and Intact Judgment/Insight
Mr. Albright is an 79-year-old male with a medical history of CAD (multiple stents), hypertension, and recent diagnosis of COPD and pneumonia who presented after being found to be in rapid A-fib while getting an echocardiogram. He was initially noted
to be in A-fib a few days prior to arrival during his outpatient pulmonology evaluation, however his heart rate was well-controlled at that time. A-fib is a new diagnosis for him. He denies any specific symptoms recently although he does note
significant dyspnea on exertion for the past year and was recently diagnosed with COPD by his mathematician. He had been started on Eliquis and metoprolol and had a planned appointment for SINDY and possible cardioversion on 02/12/2025. He was
started on doxycycline 2 days prior to arrival for treatment of left lower lobe pneumonia diagnosed by his mathematician during office visit. In the ED he was in A-fib with a heart rate of 140. He remained normotensive and was breathing
comfortably and saturating appropriately on room air. His echocardiogram shows significantly reduced ejection fraction of 25 to 30% with global hypokinesis. He was started on diltiazem drip and admitted for further evaluation and management.
A-fib with RVR:
- New diagnosis
- Increased metoprolol succinate to 25 mg twice daily
- Troponins elevated but stable, transitioning anticoagulation to IV heparin and plan for cardiac cath on Sunday, reinitiate Eliquis postprocedure
- Appreciate cardiology guidance
HFrEF:
- New diagnosis, EF 25 to 30% with global hypokinesis
- Unclear etiology, cardiac cath planned for Friday 02/09
- Currently appears compensated
- Continue beta-blockade with metoprolol succinate 25 mg twice daily
- Afterload reduction with lisinopril 5 mg daily
- Diuresis with oral Lasix 40 mg daily for now
- Added spironolactone
- Eventually consider adding SGLT2 inhibitor
COPD:
- Recent diagnosis by outpatient mathematician
- Continue scheduled breathing treatments with additional as needed
- Encourage smoking cessation
Community-acquired pneumonia:
- Left lower lobe
- Continue doxycycline
- Pulmonary toileting
CAD:
- Chronic, stable, history of PCI with multiple stents
- Continue aspirin and statin
DVT prophylaxis: IV heparin drip
CODE STATUS: Full code
Total time spent on today's encounter was 40 minutes
Anticipated Discharge: > 48 hours
Subjective/Interval History
-
Date of Service: February 07, 2025
Patient was seen and examined at bedside this morning. Troponins elevated but stable. He has no chest pain or shortness of breath at rest but does become dyspneic with minimal exertion. Planning cardiac cath on Sunday.
Objective Data
-
Labs:
Laboratory Results
02/07/25 02/07/25
06:23 12:14
WBC 8.3
Hgb 16.9
Hct 48.4
Plt Count 145
APTT Pending
Sodium 140
Potassium 3.8
Chloride 105
Carbon Dioxide 28
BUN 21 H
Creatinine 1.2
Glucose 89
Calcium 8.7
Vital Signs:
Vital Signs
Temp Pulse Resp BP Pulse Ox
98.0 F 99 16 146/85 95
02/07/25 11:05 02/07/25 11:05 02/07/25 11:05 02/07/25 11:05 02/07/25 11:05
I&O
02/06/25 02/07/25 02/08/25
06:59 06:59 06:59
Intake Total 240 / 240 960 / 960
Output Total 1925 / 1925 1150 / 1150
Balance -1685 / -1685 -190 / -190
Review of Systems
-
History Source: Patient
All other systems: Reviewed and negative
Respiratory: Reports Trouble Breathing (With minimal exertion)
Physical Exam
-
General: No Apparent Distress
[2025-02-07 12:42] LABS: APTT 34.4 Sec (23.4-35.0)
[2025-02-07] MEDS: LOW STRENGTH ASPIRIN 81 MG PO (13:32)
[2025-02-07] MEDS: ALDACTONE 12.5 MG PO (13:32)
[2025-02-07 15:20] VITALS: BP 129/83
--- NOTE | 2025-02-07 15:24 | CM ---
CM called pt's pharmacy, [facility] [phone] who provided pt's presription plan info:
[facility] [phone] ID # [id number]
Called and spoke with Michelle.
Pt is still in the deductible phase (approx. $176 met toward $590) so cost for Jardiance 10mg daily and Farxiga 10mg daily are as follow:
Jardiance 10mg 30 day= $448.75
Jardiance 10mg 90 day=$692.97
Farxiga 10mg 30 day=$442.98
Farxiga 10mg 90 day=$675.67
Once pt meets deductible, the cost will be:
Jardiance 10mg 30 day= $122.19
Jardiance 10mg 90 day= $366.41
Farxiga 10mg 30 day= $116.42
Farxiga 10mg 90 day=$349.11
[2025-02-07] MEDS: CARAFATE 1 GRAM PO ×3 (16:14→21:05)
[2025-02-07 19:10] VITALS: BP 115/77
[2025-02-07] MEDS: HEPARIN 2000 UNITS IV (19:52)
[2025-02-07] MEDS: HEPARIN 25000 UNITS/250 ML IV (19:54)
[2025-02-07 23:20] VITALS: BP 130/77
[2025-02-08 02:24] LABS: APTT 115.4 Sec (23.4-35.0)
[2025-02-08 03:19] VITALS: BP 121/79
[2025-02-08 06:00] VITALS: BMI 25.1
[2025-02-08 07:03] LABS: Blood Urea Nitrogen 23 mg/dl (9-20); Calcium 8.8 mg/dl (8.4-10.2); Carbon Dioxide 30 mmol/L (22-30); Chloride 103 mmol/L (98-107); Estimated Creatinine Clearance 42 ml/min; Glucose 87 mg/dl (70-99); Potassium 3.9 mmol/L (3.5-5.1); Sodium 140 mmol/L (135-145); eGFR 55.53
[2025-02-08 07:30] VITALS: BP 140/89
[2025-02-08] MEDS: NON-FORMULARY ITEM 1 INH INH (08:13)
[2025-02-08] MEDS: CRESTOR 10 MG PO (08:31)
[2025-02-08] MEDS: ZETIA 10 MG PO (08:31)
[2025-02-08] MEDS: PROTONIX 40 MG PO (08:31)
[2025-02-08] MEDS: ZESTRIL 5 MG PO (08:32)
[2025-02-08] MEDS: PROSCAR 5 MG PO (08:32)
[2025-02-08] MEDS: CARAFATE 1 GRAM PO ×3 (08:32→21:31)
[2025-02-08] MEDS: ALDACTONE 12.5 MG PO (08:32)
[2025-02-08] MEDS: THERAGRAN 1 TABLET PO (08:32)
[2025-02-08] MEDS: VIBRAMYCIN 100 MG PO ×2 (08:32→20:47)
[2025-02-08] MEDS: TOPROL XL 25 MG PO ×2 (08:32→20:47)
[2025-02-08] MEDS: LOW STRENGTH ASPIRIN 81 MG PO (08:32)
[2025-02-08] MEDS: LASIX 40 MG PO (08:33)
--- NOTE | 2025-02-08 08:57 | W.PN.CARDCBS ---
Today's Communication / Plan
-
Cath am
Cont IV Heparin
Impression / Plan
-
.
PCP: Daniel Davis
Archivist Political History: Dr. Pramod Mckenna
Impression:
Presented 02/05/2025 with ongoing shortness of breath
Atrial fibrillation with rapid ventricular response, new diagnosis
Acute heart failure with reduced ejection fraction, proBNP 2480
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
Pneumonia
Coronary artery disease
History of STEMI 1999, 2010
s/p stent of proximal OM1 and circumflex 04/2000
s/p LAD STEVE x 2 mid to distal LAD 05/2011
s/p STEVE of distal RCA into RPDA 05/2011
Hypertension
Hyperlipidemia
BPH
COPD
Ongoing tobacco user
GERD
Lumbar spine stenosis
Echo 02/05/2025: EF 25 to 30%, global hypokinesis. Mild to moderate MR. Mild to moderate AI. Mild TR. PAP 40 mmHg. Dilated sinus of Valsalva 4.0 cm. Ascending aorta and aortic arch are normal in caliber.
Echo 09/15/2021: EF 45 to 50%. Global hypokinesis. Stage I DD. Mild to moderate AI. PAP 25 mmHg
Exercise nuclear stress test 07/23/2017: 6: 00, 7.0 METS, 96% maximum predicted heart rate. EKG negative for ischemia. Minimally reversible defect in lateral, inferolateral and apical segment consistent with infarction with minor residual ischemia
versus soft tissue attenuation
Plan:
For cardiac cath SundayFebruary 09 to eval coronary anatomy given reduced EF and HF
Remains on oral lasix. Appears euvolemic
Cont IV heparin and eventual resume Eliquis.
Aldactone added for his CM. Cont ACEI, could consider eventual transition to Entresto
Cont Metoprolol for rate control, recently increased to 25 mg BID.
His ventricular response is still somewhat rapid. Will double metoprolol ER to 25 mg twice daily.
After catheterization can reeval regarding rhythm control with possible SINDY/cv inpt vs outpt.
He has been encouraged to stop smoking.
PNA tx as per hospitalist service.
Discussed with nursing.
HPI 02/06/2025:
Patient is an 79-year-old male with past medical history significant for coronary artery disease with prior ND and stenting of OM, circumflex, LAD and RCA, COPD with ongoing tobacco abuse, hypertension, hyperlipidemia, BPH and GERD who reports
progressively worsening dyspnea on exertion over the last 2 months. Some orthopnea/PND recently as well. No weight gain or edema, actually has lost weight. He was seen by outpatient telegraph messenger on 02/02/2025 who ordered chest x-ray which
demonstrated concern for pneumonia versus left basilar atelectasis. He was found to be in atrial fibrillation with rapid ventricular response which was new diagnosis. He was seen in outpatient cardiology office on 02/04/2025 and was started on
Eliquis with up titration of Toprol. Symptoms continued to get worse so he presented to emergency department 02/05/2025. He remained in atrial fibrillation with rapid ventricular response, proBNP noted to be elevated at 2480. He was provided 40 mg
IV Lasix and was started on IV diltiazem drip. Diltiazem gtt d/marly in am of 02/06 for hypotension/bradycardia and pauses. He underwent an echocardiogram which demonstrated newly reduced ejection fraction of 25 to 30%.
Currently patient denies CP, SOB, dizziness, palpitations, edema or orthopnea/PND.
Progress Note - Archivist Political History
Subjective
Date of Service: February 08, 2025
Pt seen and examined. No complaints. No chest pain or shortness of breath.
Objective
Labs:
02/07/25 12:14
02/08/25 06:04
Labs
Hgb 16.9 g/dL (13.0-18.0) 02/07/25 12:14
Hct 48.4 % (39.0-52.0) 02/07/25 12:14
Plt Count 145 10^3/uL (130-400) 02/07/25 12:14
APTT 115.4 Sec (23.4-35.0) H 02/08/25 02:00
Sodium 140 mmol/L (135-145) 02/08/25 06:04
Potassium 3.9 mmol/L (3.5-5.1) 02/08/25 06:04
BUN 23 mg/dl (9-20) H 02/08/25 06:04
Creatinine 1.3 mg/dL (0.7-1.3) 02/08/25 06:04
Glucose 87 mg/dl (70-99) 02/08/25 06:04
Troponins
02/06/25 02/06/25
12:18 18:01
Troponin I 0.205 H* 0.220 H*
Vital Signs and I&O:
Vital Signs
Temp Pulse Resp BP Pulse Ox
98.5 F 91 16 140/84 95
02/08/25 07:30 02/08/25 08:32 02/08/25 08:21 02/08/25 08:32 02/08/25 08:21
Vital Signs
Temp Pulse Resp BP Pulse Ox
98.5 F 91 16 140/84 95
02/08/25 07:30 02/08/25 08:32 02/08/25 08:21 02/08/25 08:32 02/08/25 08:21
Intake & Output
02/06/25 02/07/25 02/08/25 02/09/25
06:59 06:59 06:59 06:59
Intake Total 240 / 240 960 / 960 240 / 240
Output Total 1925 / 1925 1150 / 1150 1020 / 1020
Balance -1685 / -1685 -190 / -190 -780 / -780
Physical Exam
Physical Exam
General: No acute distress, AAOX3
Neck: Negative JVD
Heart: Irregularly irregular, Negative S3 positive S1/S2, Negative S4, No murmur
Lungs: CTA b/l, negative wheezes/rales/rhonchi
Abd: Positive BS, NT/ND, neg rebound/rigidity/guarding
Ext: Negative cyanosis/clubbing/edema
Neuro: nonfocal
[2025-02-08 11:13] VITALS: BP 122/76
--- NOTE | 2025-02-08 11:30 | W.PN.HOSP.TC ---
Today's Communication/Plan
-
Assessment / Plan
Assessment / Plan
General: No Apparent Distress, Comfortable and Conversant
HEENT: NormoCephalic, Moist mucous membranes, Atraumatic
Respiratory: Clear and Non Labored Respirations
Cardiac: S1/S2 and irregular rhythm; heart rate 90-100
GI: Soft, Non Tender, Non Distended and Normal Bowel Sounds
Musculoskeletal: No Edema, no deformity
Skin: Warm and dry
: NO Rivas
Neuro: Awake, Alert, Nonfocal/grossly intact
Psych: Calm and Intact Judgment/Insight
Mr. Albright is an 79-year-old male with a medical history of CAD (multiple stents), hypertension, and recent diagnosis of COPD and pneumonia who presented after being found to be in rapid A-fib while getting an echocardiogram. He was initially noted
to be in A-fib a few days prior to arrival during his outpatient pulmonology evaluation, however his heart rate was well-controlled at that time. A-fib is a new diagnosis for him. He denies any specific symptoms recently although he does note
significant dyspnea on exertion for the past year and was recently diagnosed with COPD by his cage/vault supervisor. He had been started on Eliquis and metoprolol and had a planned appointment for SINDY and possible cardioversion on 02/12/2025. He was
started on doxycycline 2 days prior to arrival for treatment of left lower lobe pneumonia diagnosed by his cage/vault supervisor during office visit. In the ED he was in A-fib with a heart rate of 140. He remained normotensive and was breathing
comfortably and saturating appropriately on room air. His echocardiogram shows significantly reduced ejection fraction of 25 to 30% with global hypokinesis. He was started on diltiazem drip and admitted for further evaluation and management.
A-fib with RVR:
- New diagnosis
- Increased metoprolol succinate to 25 mg twice daily
- Troponins elevated but stable, transitioned anticoagulation to IV heparin and plan for cardiac cath on Sunday, reinitiate Eliquis postprocedure
- Appreciate cardiology guidance
HFrEF:
- New diagnosis, EF 25 to 30% with global hypokinesis
- Unclear etiology, cardiac cath planned for Friday 02/09
- Currently appears compensated
- Continue beta-blockade with metoprolol succinate 25 mg twice daily
- Afterload reduction with lisinopril 5 mg daily
- Diuresis with oral Lasix 40 mg daily for now
- Added spironolactone
- Eventually consider adding SGLT2 inhibitor
COPD:
- Recent diagnosis by outpatient cage/vault supervisor
- Continue scheduled breathing treatments with additional as needed
- Encourage smoking cessation
Community-acquired pneumonia:
- Left lower lobe
- Continue doxycycline
- Pulmonary toileting
CAD:
- Chronic, stable, history of PCI with multiple stents
- Continue aspirin and statin
DVT prophylaxis: IV heparin drip
CODE STATUS: Full code
Total time spent on today's encounter was 40 minutes
Anticipated Discharge: 24 - 48 hours
Subjective/Interval History
-
Date of Service: February 08, 2025
Patient was seen and examined at bedside this morning. No complaints currently. Plan for left heart catheterization tomorrow 02/09.
Objective Data
-
Labs:
Laboratory Results
02/08/25 02/08/25 02/08/25
02:00 06:04 09:12
APTT 115.4 H 94.0 H
Sodium 140
Potassium 3.9
Chloride 103
Carbon Dioxide 30
BUN 23 H
Creatinine 1.3
Glucose 87
Calcium 8.8
02/08/25
16:20
APTT Pending
Sodium
Potassium
Chloride
Carbon Dioxide
BUN
Creatinine
Glucose
Calcium
Vital Signs:
Vital Signs
Temp Pulse Resp BP Pulse Ox
97.8 F 101 18 122/76 95
02/08/25 11:13 02/08/25 11:13 02/08/25 11:13 02/08/25 11:13 02/08/25 11:13
I&O
02/07/25 02/08/25 02/09/25
06:59 06:59 06:59
Intake Total 960 / 960 240 / 240
Output Total 1150 / 1150 1020 / 1020
Balance -190 / -190 -780 / -780
Review of Systems
-
History Source: Patient
All other systems: Reviewed and negative
Physical Exam
-
General: No Apparent Distress
[2025-02-08 15:25] VITALS: BP 110/72
[2025-02-08] MEDS: CARAFATE PO ×2 (16:42→20:48)
[2025-02-08 16:43] LABS: APTT 70.4 Sec (23.4-35.0)
[2025-02-08 19:23] VITALS: BP 120/81
[2025-02-08] MEDS: HEPARIN 25000 UNITS/250 ML IV (20:54)
[2025-02-08 23:18] VITALS: BP 115/73
[2025-02-08 23:21] LABS: APTT 98.5 Sec (23.4-35.0)
[2025-02-09] VITALS (13 sets, daily range): BP systolic 105–167; BP diastolic 67–88; PULSE 96–100; BMI 25.2
[2025-02-09 05:48] LABS: APTT 122.8 Sec (23.4-35.0)
[2025-02-09 05:49] LABS: Hematocrit 46.9 % (39.0-52.0); Hemoglobin 16.2 g/dL (13.0-18.0); Mean Corp Hgb Conc. 34.5 g/dL (33.0-37.0); Mean Corpuscular Hgb 32.5 pg (27.0-31.0); Mean Platelet Volume 11.2 fL (7.4-10.4); Platelet Count 123 10^3/uL (130-400); Red Blood Cell Count 4.99 10^6/uL (4.70-6.10); Red Cell Dist. Width 13.5 % (11.5-14.5); White Blood Cell Count 6.6 10^3/uL (4.8-10.8)
--- NOTE | 2025-02-09 05:57 | W.PN.HOSP.TC ---
Today's Communication/Plan
-
see a/p
Assessment / Plan
Assessment / Plan
Physical Exam
General: No Apparent Distress, Comfortable
HEENT: NormoCephalic, Moist mucous membranes, Atraumatic
Respiratory: Clear and Non Labored Respirations
Cardiac: S1/S2 and irregular rhythm; Tachy
GI: Soft, Non Tender, Non Distended and Normal Bowel Sounds
Musculoskeletal: No Edema, no deformity
Skin: Warm and dry
Neuro: Aox3 conversant coherent
Psych: Calm
79M CAD multiple stents HTN COPD presented after being found to be in rapid A-fib while getting an echocardiogram. He was initially noted to be in A-fib a few days prior to arrival during his outpatient pulmonology evaluation, however his heart
rate was well-controlled at the time. He denies any specific symptoms recently although he does note significant dyspnea on exertion for the past year and was recently diagnosed with COPD by his income tax auditor. He had been started on Eliquis and
metoprolol and had a planned appointment for SINDY and possible cardioversion on 02/12/2025. He was started on doxycycline 2 days prior to arrival for treatment of left lower lobe pneumonia diagnosed by his income tax auditor during office visit. In the
ED he was in A-fib with a heart rate of 140. He remained normotensive and was breathing comfortably and saturating appropriately on room air. His echocardiogram shows significantly reduced ejection fraction of 25 to 30% with global hypokinesis.
He was started on diltiazem drip and admitted for further evaluation and management.
New onset A-fib with RVR:
- Metoprolol succinate 25 mg twice daily
- Troponins elevated, chest pain free, transitioned anticoagulation to IV heparin in preparation for cath
- Cardio eval appreciated cath noted CAD out of proportion w severe left ventricular systolic dysfunction, cardiomyopathy likely nonischemic
-Eliquis resumed post-cath
HFrEF:
- New diagnosis, EF 25 to 30% with global hypokinesis
- Currently appears compensated
- Continue beta-blockade with metoprolol succinate 25 mg twice daily
- Afterload reduction with lisinopril 5 mg daily
- Diuresis with oral Lasix 40 mg daily for now
- Added spironolactone
- Farxiga
COPD:
- Recent diagnosis by outpatient income tax auditor
- Continue scheduled breathing treatments with additional as needed
- Encourage smoking cessation
Community-acquired pneumonia:
- Left lower lobe
- Continue doxycycline
- Pulmonary toileting
CAD:
- Chronic, stable, history of PCI with multiple stents
- Continue aspirin and statin
DVT prophylaxis: Eliquis
CODE STATUS: Full code
I spent a total of 45 minutes with the patient or on the floor. More than 50% of this time involved counseling and coordination of care.
Anticipated Discharge: 24 - 48 hours
Subjective/Interval History
-
Date of Service: February 09, 2025
no acute distress resting comfortably in bed. overall reports feeling well. denies new acute issues at this time. Stable respiratory status on room air. Denies chest pain palpitations sob.
Objective Data
-
Labs:
Laboratory Results
02/08/25 02/09/25
23:03 05:18
WBC 6.6
Hgb 16.2
Hct 46.9
Plt Count 123 L
APTT 98.5 H 122.8 H
Sodium Pending
Potassium Pending
Chloride Pending
Carbon Dioxide Pending
BUN Pending
Creatinine Pending
Glucose Pending
Calcium Pending
Vital Signs:
Vital Signs
Temp Pulse Resp BP Pulse Ox
98.2 F 85 24 116/67 97
02/09/25 03:22 02/09/25 03:22 02/09/25 03:22 02/09/25 03:22 02/09/25 03:22
I&O
02/07/25 02/08/2525
06:59 06:59 06:59
Intake Total 960 / 960 240 / 240 699 / 699
Output Total 1150 / 1150 1020 / 1020 425 / 425
Balance -190 / -190 -780 / -780 274 / 274
[2025-02-09 06:31] LABS: Blood Urea Nitrogen 28 mg/dl (9-20); Calcium 9.1 mg/dl (8.4-10.2); Carbon Dioxide 28 mmol/L (22-30); Chloride 104 mmol/L (98-107); Estimated Creatinine Clearance 42 ml/min; Glucose 102 mg/dl (70-99); Potassium 3.9 mmol/L (3.5-5.1); Sodium 139 mmol/L (135-145); eGFR 55.53
[2025-02-09] MEDS: NON-FORMULARY ITEM 1 INH INH (08:19)
[2025-02-09] MEDS: CRESTOR 10 MG PO (08:24)
[2025-02-09] MEDS: ZETIA 10 MG PO (08:24)
[2025-02-09] MEDS: PROTONIX 40 MG PO (08:24)
[2025-02-09] MEDS: ZESTRIL 5 MG PO ×2 (08:25→19:33)
[2025-02-09] MEDS: TOPROL XL 25 MG PO ×2 (08:25→19:33)
[2025-02-09] MEDS: THERAGRAN 1 TABLET PO (08:25)
[2025-02-09] MEDS: LASIX 40 MG PO (08:25)
[2025-02-09] MEDS: VIBRAMYCIN 100 MG PO ×2 (08:25→19:33)
[2025-02-09] MEDS: LOW STRENGTH ASPIRIN 81 MG PO (08:25)
[2025-02-09] MEDS: PROSCAR 5 MG PO (08:25)
[2025-02-09] MEDS: ALDACTONE 12.5 MG PO (08:26)
[2025-02-09] MEDS: CARAFATE PO ×4 (08:26→19:39)
[2025-02-09 12:27] LABS: APTT 90.2 Sec (23.4-35.0)
[2025-02-09] MEDS: LOW STRENGTH ASPIRIN 324 MG PO (14:03)
--- NOTE | 2025-02-09 14:36 | ITS.CL.CATH ---
Taker Out - Catheterization
Cardiac Catheterization
Procedure Report:
LEFT AND RIGHT HEART CATHETERIZATION
Date of Procedure: February 09, 2025
Referring: Washington Sagastume.
PROCEDURES:
1. Left heart catheterization, coronary angiogram.
2. Moderate sedation.
3. Right heart catheterization.
4. Functional physiologic testing with IFR of proximal RCA and midportion of RPL
INDICATION: Brandon is a 79-year-old gentleman with past medical history of hypertension, hyperlipidemia, COPD, ongoing tobacco abuse, lumbar spine stenosis, GERD, coronary artery disease with prior history of STEMI in 2020 07, status post stent of
proximal OM1 and circumflex in April, status post LAD drug-eluting stent x 2 mid to distal LAD 05/2011, s/p STEVE of distal RCA into RPDA 05/2011 who presented this admission with ongoing shortness of breath found to be in atrial fibrillation with
rapid ventricular response with acute decompensated heart failure and new reduction in LVEF of 25 to 30% now being referred for left and right heart catheterization.
ACCESS: 1. Right radial artery, 6Fr. sheath, under US guidance.
2. Right brachial vein, 6 Turkmen sheath
HEMODYNAMICS : (mmHg)
RA (m) : 8
RV (s/d,m) : 27/3, 10
PA (s/d, m) : 27/17, 21
PCWP (m) : 15
PA saturation: 67.2% on room air
AO saturation: 93.9% on room air
RA saturation: 66.6% on room air
Cardiac Output : 3.99 L/min by Gurpreet calculation
Cardiac Index : 2.17 L/min/m-2 by Gurpreet calculation
Systemic vascular resistance: 1682 dsc^(-5)
Pulmonary vascular resistance: 1.50 silva unit
AO (s/d) : 120/77
LVEDP : 16
No significant gradient across the aortic valve to suggest aortic stenosis.
CORONARY FINDINGS
Dominance: Right
Left Main Trunk (LMT): Large caliber vessel that gives rise to the LAD and LCx branches and has mild diffuse atherosclerotic plaque.
Left Anterior Descending Artery (LAD): Large caliber vessel that gives off 2 major diagonal branches as it courses along the anterior inter-ventricular groove before wrapping around the cardiac apex. Previously placed mid LAD stent is widely
patent. There is otherwise mild diffuse atherosclerotic plaque.
Left Circumflex Artery (LCx): Large caliber vessel that gives off 2 major obtuse marginal (OM) branches as it courses along the atrio-ventricular (AV) groove. OM1 has a prior stent with 40 to 50% diffuse in-stent restenosis. Otherwise there is
mild diffuse atherosclerotic plaque.
Right Coronary Artery (RCA): Large caliber dominant vessel that gives rise to the posterior descending artery (RPDA) and postero-lateral ventricular (RPLV) branches distally. The proximal portion of the RCA has a 50% stenosis. Mid RCA proximal to
RPLB also has diffuse in-stent 50 to 60% stenosis. RPDA stent in the midportion has mild diffuse in-stent re-stenosis. iFR negative for proximal RCA at 0.97 and IFR negative of RPL at 1.0
SEDATION: 47 minutes of procedural sedation was utilized. IV Midazolam and IV Fentanyl were administered. An independent medical assistant dermatology was present to assist with and help manage the patient's level of consciousness and physiologic status.
HEMODYNAMIC ASSESSMENT OF THE PROXIMAL RCA AND RPLB WITH A [employer] OMNI WIRE: The origin of the RCA was cannulated with a 6 Fr JR4 guide catheter. Intravenous heparin was administered and the ACT was followed during the procedure. Two hundred
micrograms of intracoronary nitroglycerin was given through the guide catheter. A Bol[place]ar Omni wire was advanced to the guide catheter tip and normalized just outside the guide catheter. The Omni wire was then carefully manipulated across the
stenosis in the proximal RCA with the iFR above the ischemic threshold serially measuring 0.97, 0.98, 0.98. The Omni wire was then pulled back to the guide catheter where the Pd/Pa measured 1.0 confirming no baseline drift in pressure readings. We
then redirected the same wire into the distal RPL branch with the IFR continuing to be above the ischemic threshold serially measuring 1.0 x 3. The Omni wire was then pulled back to the guide catheter where the Pd/Pa measured 1.0 confirming no
baseline drift in pressure readings.
RADIATION SUMMARY: Fluoro Time (min): 4.8, Dose (mGy): 320.84, DAP (Gy.cm2) : 21.4
Closure Device: There were no immediate intra-procedural complications. The sheath was pulled in the laboratory technician and a vascular-band applied to the right wrist for radial artery hemostasis using the patent hemostasis technique.
CONCLUSIONS
1. Right dominant coronary circulation.
2. The proximal portion of the RCA has a 50% stenosis. Mid RCA proximal to RPLB also has diffuse in-stent 50 to 60% stenosis. iFR negative for proximal RCA at 0.97 and IFR negative of RPL at 1.0.
3. OM1 has a prior stent with 40 to 50% diffuse in-stent restenosis. Otherwise there is mild diffuse atherosclerotic plaque.
4. Mildly elevated right and left-sided filling pressures with overall normal cardiac output and elevated systemic vascular resistance.
RECOMMENDATIONS
1. Coronary artery disease is out of proportion to explain the severe left ventricular systolic dysfunction therefore cardiomyopathy is likely more nonischemic in etiology.
2. Wean radial band per protocol. Monitor right hand perfusion and for bleeding from the radial site following removal of the vascular-band following trans-radial access.
3. Continue aggressive goal-directed medical therapy for new cardiomyopathy and risk factor modification for secondary CAD prevention.
4. Hydrate with normal saline to mitigate the risk of contrast-induced acute kidney injury. Plan to resume Eliquis later tonight if no acute issues at access sites
5. Referral for outpatient cardiac rehab.
6. Strongly encourage complete smoking cessation
Copy to: Washington Sagastume.
Tess Velasquez MD, [facility], [facility]
[2025-02-09 15:10] LABS: ACT-LR - POC 393 Seconds (116-155)
--- NOTE | 2025-02-09 15:45 | PTCARENOTE ---
Received pt from [facility] s/p cardiac cath. Pt AAOX3. Pox: 96% RA. Patient denies pain/ SOB. Call godinez within reach. Plan of care ongoing.
[2025-02-09] MEDS: NSS 1000 IV (15:58)
--- NOTE | 2025-02-09 16:14 | CM ---
Chart reviewed home when stable.
Plan; Home when stable.
[2025-02-09] MEDS: LASIX 40 MG IV (16:38)
[2025-02-09] MEDS: FLUSH (NSS) 1 FLUSH IV (16:38)
[2025-02-10] VITALS (7 sets, daily range): BP systolic 97–129; BP diastolic 57–90; PULSE 82–104; BMI 24.7
--- NOTE | 2025-02-10 06:33 | W.PN.HOSP.TC ---
Today's Communication/Plan
-
see a/p
Assessment / Plan
Assessment / Plan
Physical Exam
General: No Apparent Distress, Comfortable
HEENT: NormoCephalic, Moist mucous membranes, Atraumatic
Respiratory: Clear and Non Labored Respirations
Cardiac: S1/S2 and irregular rhythm; Tachy
GI: Soft, Non Tender, Non Distended and Normal Bowel Sounds
Musculoskeletal: No Edema, no deformity
Skin: Warm and dry
Neuro: Aox3 conversant coherent
Psych: Calm
79M CAD multiple stents HTN COPD presented after being found to be in rapid A-fib while getting an echocardiogram. He was initially noted to be in A-fib a few days prior to arrival during his outpatient pulmonology evaluation, however his heart
rate was well-controlled at the time. He denies any specific symptoms recently although he does note significant dyspnea on exertion for the past year and was recently diagnosed with COPD by his middleware architect. He had been started on Eliquis and
metoprolol and had a planned appointment for SINDY and possible cardioversion on 02/12/2025. He was started on doxycycline 2 days prior to arrival for treatment of left lower lobe pneumonia diagnosed by his middleware architect during office visit. In the
ED he was in A-fib with a heart rate of 140. He remained normotensive and was breathing comfortably and saturating appropriately on room air. His echocardiogram shows significantly reduced ejection fraction of 25 to 30% with global hypokinesis.
He was started on diltiazem drip and admitted for further evaluation and management.
New onset A-fib with RVR:
- Metoprolol succinate 25 mg twice daily
- Troponins elevated, chest pain free, transitioned anticoagulation to IV heparin in preparation for cath
- cath noted CAD out of proportion w severe left ventricular systolic dysfunction, cardiomyopathy likely nonischemic
-Eliquis resumed post-cath
-Cardio eval appreciated planned for SINDY cardioversion tomorrow npo after midnight
HFrEF:
- New diagnosis, EF 25 to 30% with global hypokinesis
- Currently appears compensated
- Continue beta-blockade with metoprolol succinate 25 mg twice daily
- Afterload reduction with lisinopril 5 mg daily
- Diuresis with oral Lasix 40 mg daily for now
- Added spironolactone, cont
- Farxiga
COPD:
- Recent diagnosis by outpatient middleware architect
- Continue scheduled breathing treatments with additional as needed
- Encourage smoking cessation
Community-acquired pneumonia:
- Left lower lobe
- completed 5 days doxycycline
- Pulmonary toileting
CAD:
- Chronic, stable, history of PCI with multiple stents
- Continue aspirin and statin
DVT prophylaxis: Eliquis
CODE STATUS: Full code
I spent a total of 45 minutes with the patient or on the floor. More than 50% of this time involved counseling and coordination of care.
Anticipated Discharge: 24 - 48 hours
Subjective/Interval History
-
Date of Service: February 10, 2025
no acute distress resting comfortably in bed. Denies new acute issues at this time. Overall reports feeling well.
Objective Data
-
Labs:
Laboratory Results
02/10/25
06:00
WBC Pending
Hgb Pending
Hct Pending
Plt Count Pending
Sodium Pending
Potassium Pending
Chloride Pending
Carbon Dioxide Pending
BUN Pending
Creatinine Pending
Glucose Pending
Calcium Pending
Vital Signs:
Vital Signs
Temp Pulse Resp BP Pulse Ox
97.7 F 78 16 107/60 97
02/10/25 03:17 02/10/25 03:17 02/10/25 03:17 02/10/25 03:17 02/10/25 03:17
I&O
02/08/25 02/09/25 02/10/25
06:59 06:59 06:59
Intake Total 240 / 240 1179 / 1179 330 / 330
Output Total 1020 / 1020 1225 / 1225 450 / 450
Balance -780 / -780 -46 / -46 -120 / -120
[2025-02-10 06:53] LABS: Hematocrit 48.7 % (39.0-52.0); Hemoglobin 16.8 g/dL (13.0-18.0); Mean Corp Hgb Conc. 34.5 g/dL (33.0-37.0); Mean Corpuscular Hgb 32.4 pg (27.0-31.0); Mean Platelet Volume 10.6 fL (7.4-10.4); Platelet Count 115 10^3/uL (130-400); Red Blood Cell Count 5.18 10^6/uL (4.70-6.10); Red Cell Dist. Width 13.5 % (11.5-14.5); White Blood Cell Count 6.7 10^3/uL (4.8-10.8)
[2025-02-10 07:31] LABS: Blood Urea Nitrogen 30 mg/dl (9-20); Carbon Dioxide 29 mmol/L (22-30); Chloride 105 mmol/L (98-107); Estimated Creatinine Clearance 42 ml/min; Glucose 87 mg/dl (70-99); Magnesium 1.7 mg/dl (1.6-2.3); Phosphorus 4.4 mg/dl (2.5-4.5); Potassium 3.8 mmol/L (3.5-5.1); Sodium 141 mmol/L (135-145); eGFR 55.53
[2025-02-10] MEDS: NON-FORMULARY ITEM 1 INH INH (07:40)
[2025-02-10] MEDS: CARAFATE PO ×4 (08:49→21:13)
[2025-02-10] MEDS: VIBRAMYCIN 100 MG PO ×2 (08:51→20:08)
[2025-02-10] MEDS: CRESTOR 10 MG PO (08:51)
[2025-02-10] MEDS: ZETIA 10 MG PO (08:51)
[2025-02-10] MEDS: PROTONIX 40 MG PO (08:51)
[2025-02-10] MEDS: FARXIGA 10 MG PO (08:51)
[2025-02-10] MEDS: PROSCAR 5 MG PO (08:51)
[2025-02-10] MEDS: LASIX 40 MG PO (08:52)
[2025-02-10] MEDS: ZESTRIL 5 MG PO ×2 (08:52→20:08)
[2025-02-10] MEDS: THERAGRAN 1 TABLET PO (08:52)
[2025-02-10] MEDS: TOPROL XL 25 MG PO ×2 (08:52→20:08)
[2025-02-10] MEDS: ALDACTONE 12.5 MG PO (08:52)
[2025-02-10] MEDS: LOW STRENGTH ASPIRIN 81 MG PO (08:52)
[2025-02-10] MEDS: ELIQUIS 5 MG PO ×2 (08:52→20:08)
[2025-02-10] MEDS: MAGNESIUM SULFATE 50 IV (13:16)
--- NOTE | 2025-02-10 14:23 | W.PN.CARDCBS ---
Addendum entered and electronically signed by Bernard Lewis MD 02/10/25 15:10:
I saw and examined the patient.
The Superintendent's note was reviewed and I agree with the note.
Comment: Briefly, 79-year-old man past medical history of multivessel CAD, COPD, current smoker who presented for evaluation of progressively worsening dyspnea.
Recent transthoracic echocardiogram revealed severely reduced left ventricular systolic function, EF 25 to 30%
Appears euvolemic on exam and filling pressures are reasonable based on invasive hemodynamics yesterday
He was referred for coronary angiography which showed LV dysfunction out of proportion to his underlying coronary artery disease suggestive more so of nonischemic cardiomyopathy.
Continue beta-michelle, ERIKA inhibitor, SGLT2, MRA
He has been in atrial fibrillation which is a new diagnosis for him
Continue metoprolol for rate control
Eliquis for risk reduction of cardioembolic stroke
Tentative plan for SINDY/direct-current cardioversion in a.m.
Original Note:
Today's Communication / Plan
-
SINDY/cardioversion in a.m.
Impression / Plan
-
.
PCP: Daniel Davis
Wellness Nurse: Dr. Pramod Mckenna
Impression:
Presented 02/05/2025 with ongoing shortness of breath
Atrial fibrillation with rapid ventricular response, new diagnosis
Acute heart failure with reduced ejection fraction, proBNP 2480
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
Pneumonia
Coronary artery disease
History of STEMI 2010
s/p stent of proximal OM1 and circumflex 04/2000
s/p LAD STEVE x 2 mid to distal LAD 05/2011
s/p STEVE of distal RCA into RPDA 05/2011
Hypertension
Hyperlipidemia
BPH
COPD
Ongoing tobacco user
GERD
Lumbar spine stenosis
Echo 02/05/2025: EF 25 to 30%, global hypokinesis. Mild to moderate MR. Mild to moderate AI. Mild TR. PAP 40 mmHg. Dilated sinus of Valsalva 4.0 cm. Ascending aorta and aortic arch are normal in caliber.
Echo 09/15/2021: EF 45 to 50%. Global hypokinesis. Stage I DD. Mild to moderate AI. PAP 25 mmHg
Exercise nuclear stress test 07/23/2017: 6: 00, 7.0 METS, 96% maximum predicted heart rate. EKG negative for ischemia. Minimally reversible defect in lateral, inferolateral and apical segment consistent with infarction with minor residual ischemia
versus soft tissue attenuation
Plan:
- He presented to [facility] ER with complaints of SOB. He had been seen by his outpatient avionics electrical engineer with concern by x-ray for pneumonia. He was also found to be in A-fib with RVR which was new diagnosis and saw cardiology in office 02/04. At that
time Toprol was increased and Eliquis was started. He was arranged for SINDY/cardioversion 02/12, to allow for recovery from pneumonia. On admission he was found to be in heart failure and has been diuresed with improvement. Echocardiogram showed
new EF of 25 to 30%. Trops flat in 0.2 range. He underwent cardiac catheterization on 02/09/2025 which showed moderate nonobstructive coronary disease and did not require intervention. Cardiomyopathy felt to be primarily nonischemic.
- Continue p.o. Lasix 40 mg daily. Was not on diuretic therapy prior to admission. Creatinine stable at 1.3
- Continue Toprol, Aldactone, ACEI, farxiga. Could consider eventual transition to Entresto. 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
- Continue Eliquis. also presently remains on aspirin 81mg daily.
- Plan for SINDY/cardioversion in a.m. procedure discussed with patient in detail 02/10 and he is agreeable to proceed
- Will arrange for outpatient EP follow-up to discuss ablation in further detail
- BMP in 1 week
- LDL 37. continue crestor
- TSH within normal limits
- Smoking cessation encouraged
- Suspect will be ready for discharge post SINDY/cardioversion tomorrow
HPI 02/06/2025:
Patient is an 79-year-old male with past medical history significant for coronary artery disease with prior [place] and stenting of OM, circumflex, LAD and RCA, COPD with ongoing tobacco abuse, hypertension, hyperlipidemia, BPH and GERD who reports
progressively worsening dyspnea on exertion over the last 2 months. Some orthopnea/PND recently as well. No weight gain or edema, actually has lost weight. He was seen by outpatient avionics electrical engineer on 02/02/2025 who ordered chest x-ray which
demonstrated concern for pneumonia versus left basilar atelectasis. He was found to be in atrial fibrillation with rapid ventricular response which was new diagnosis. He was seen in outpatient cardiology office on 02/04/2025 and was started on
Eliquis with up titration of Toprol. Symptoms continued to get worse so he presented to emergency department 02/05/2025. He remained in atrial fibrillation with rapid ventricular response, proBNP noted to be elevated at 2480. He was provided 40 mg
IV Lasix and was started on IV diltiazem drip. Diltiazem gtt d/marly in am of 02/06 for hypotension/bradycardia and pauses. He underwent an echocardiogram which demonstrated newly reduced ejection fraction of 25 to 30%.
Currently patient denies CP, SOB, dizziness, palpitations, edema or orthopnea/PND.
Progress Note - Wellness Nurse
Subjective
Date of Service: February 10, 2025
No complaints at present. Denies palpitations. Reports continued good urine output with diuresis.
Objective
Labs:
02/10/25 06:38
02/10/25 06:38
Labs
Hgb 16.8 g/dL (13.0-18.0) 02/10/25 06:38
Hct 48.7 % (39.0-52.0) 02/10/25 06:38
Plt Count 115 10^3/uL (130-400) L 02/10/25 06:38
APTT Cancelled 02/09/25 18:30
Sodium 141 mmol/L (135-145) 02/10/25 06:38
Potassium 3.8 mmol/L (3.5-5.1) 02/10/25 06:38
BUN 30 mg/dl (9-20) H 02/10/25 06:38
Creatinine 1.3 mg/dL (0.7-1.3) 02/10/25 06:38
Glucose 87 mg/dl (70-99) 02/10/25 06:38
Vital Signs and I&O:
Vital Signs
Temp Pulse Resp BP Pulse Ox
97.9 F 82 18 106/69 99
02/10/25 11:42 02/10/25 11:42 02/10/25 11:42 02/10/25 11:42 02/10/25 11:42
Vital Signs
Temp Pulse Resp BP Pulse Ox
97.9 F 82 18 106/69 99
02/10/25 11:42 02/10/25 11:42 02/10/25 11:42 02/10/25 11:42 02/10/25 11:42
Intake & Output
02/08/25 02/09/25 02/10/25 02/11/25
07:59 07:59 07:59 07:59
Intake Total 240 / 240 1179 / 1179 330 / 330
Output Total 1020 / 1020 1225 / 1225 450 / 450
Balance -780 / -780 -46 / -46 -120 / -120
Physical Exam
Physical Exam
GEN: No distress, awake, alert, oriented x3, although appears forgetful
HEENT: supple, anicteric, mmm, EOMI
LUNGS: CTA B/L, no wheezes/rales
CV: Irreg, S1/S2, no murmur
ABD: soft, BS+, NT/ND
EXT: No cyanosis, clubbing, edema
NEURO: Gross non-focal
SKIN: Warm, pink, dry. No rash
[2025-02-11 03:00] VITALS: BP 122/77
[2025-02-11 05:53] VITALS: BMI 24.6
[2025-02-11 07:10] LABS: Hematocrit 48.8 % (39.0-52.0); Hemoglobin 16.7 g/dL (13.0-18.0); Mean Corp Hgb Conc. 34.2 g/dL (33.0-37.0); Mean Corpuscular Hgb 32.5 pg (27.0-31.0); Mean Corpuscular Volume 94.9 fL (80.0-94.0); Mean Platelet Volume 10.4 fL (7.4-10.4); Platelet Count 119 10^3/uL (130-400); Red Blood Cell Count 5.14 10^6/uL (4.70-6.10); Red Cell Dist. Width 13.5 % (11.5-14.5); White Blood Cell Count 7.2 10^3/uL (4.8-10.8)
[2025-02-11 07:15] LABS: Blood Urea Nitrogen 31 mg/dl (9-20); Carbon Dioxide 31 mmol/L (22-30); Chloride 102 mmol/L (98-107); Estimated Creatinine Clearance 37 ml/min; Glucose 94 mg/dl (70-99); Magnesium 2.2 mg/dl (1.6-2.3); Phosphorus 3.9 mg/dl (2.5-4.5); Sodium 139 mmol/L (135-145); eGFR 46.77
[2025-02-11] MEDS: NON-FORMULARY ITEM 1 INH INH (08:02)
[2025-02-11] MEDS: ZETIA 10 MG PO (08:08)
[2025-02-11] MEDS: PROTONIX 40 MG PO (08:08)
[2025-02-11] MEDS: FARXIGA 10 MG PO (08:08)
[2025-02-11] MEDS: CRESTOR 10 MG PO (08:08)
[2025-02-11] MEDS: LASIX 40 MG PO (08:09)
[2025-02-11] MEDS: CARAFATE 1 GRAM PO ×2 (08:09→16:25)
[2025-02-11] MEDS: LOW STRENGTH ASPIRIN 81 MG PO (08:09)
[2025-02-11] MEDS: VIBRAMYCIN 100 MG PO (08:09)
[2025-02-11] MEDS: ZESTRIL 5 MG PO (08:09)
[2025-02-11] MEDS: ELIQUIS 5 MG PO (08:09)
[2025-02-11] MEDS: ALDACTONE 12.5 MG PO (08:10)
[2025-02-11] MEDS: PROSCAR 5 MG PO (08:10)
[2025-02-11] MEDS: THERAGRAN 1 TABLET PO (08:10)
[2025-02-11] MEDS: TOPROL XL 25 MG PO (08:10)
[2025-02-11 08:18] VITALS: BP 127/80
--- NOTE | 2025-02-11 09:31 | CM ---
Patient seen at bedside
Await TTE/cardioversion
IMM explained. In chart
PLAN: Home when stable, no needs
--- NOTE | 2025-02-11 09:38 | W.PN.HOSP.TC ---
Today's Communication/Plan
-
discharge
Assessment / Plan
Assessment / Plan
Physical Exam
General: No Apparent Distress, Comfortable
HEENT: NormoCephalic, Moist mucous membranes, Atraumatic
Respiratory: Clear and Non Labored Respirations
Cardiac: S1/S2 NSR no murmurs rubs gallops
GI: Soft, Non Tender, Non Distended and Normal Bowel Sounds
Musculoskeletal: No Edema, no deformity
Skin: Warm and dry
Neuro: AOx3 conversant coherent
Psych: Calm
79M CAD multiple stents HTN COPD presented after being found to be in rapid A-fib while getting an echocardiogram. He was initially noted to be in A-fib a few days prior to arrival during his outpatient pulmonology evaluation, however his heart
rate was well-controlled at the time. He denied any specific symptoms recently although he does note significant dyspnea on exertion for the past year and was recently diagnosed with COPD by his production control planner. He had been started on Eliquis and
metoprolol and had a planned appointment for SINDY and possible cardioversion on 02/12/2025. He was started on doxycycline 2 days prior to arrival for treatment of left lower lobe pneumonia diagnosed by his production control planner during office visit. In the
ED he was in A-fib with a heart rate of 140. He remained normotensive and was breathing comfortably and saturating appropriately on room air. His echocardiogram showed significantly reduced ejection fraction of 25 to 30% with global hypokinesis.
He was started on diltiazem drip and admitted for further evaluation and management.
New onset A-fib with RVR:
- Metoprolol succinate 25 mg twice daily
- Troponin elevated, chest pain free, suspect non-ischemic myocardial injury
- cath noted CAD out of proportion w severe left ventricular systolic dysfunction, cardiomyopathy likely nonischemic
- cont Eliquis
- Cardio eval appreciated patient successfully cardioverted 02/11 stable for discharge home
Chronic Heart Failure with Reduced Ejection Fraction
- New diagnosis, EF 25 to 30% with global hypokinesis
- Appeared compensated throughout hospitalization, no respiratory symptoms, ambulatory without issues or need for assist device
- Continue beta-blockade with metoprolol succinate 25 mg twice daily
- Afterload reduction with lisinopril 5 mg daily
- started on Diuresis with oral Lasix 40 mg daily here since placed on hold due to mild MAXIM, will prescribe as needed on discharge for wt gain with follow up recommended with cardiology and primary care provider for further adjustment as necessary
- Added spironolactone, cont
- Farxiga
- fluid restriction
Mild MAXIM
Initial Cr 1.1 since increased to 1.5 while on diuretics
Diuresis placed on hold, prn lasix to be prescribed on discharge as above
Outpatient follow up BMP in 1 week recommended, script provided to facilitate, result to be forwarded to primary care provider and cardiology
COPD:
- Recent diagnosis by outpatient production control planner
- Continue scheduled breathing treatments with additional as needed
- Encourage smoking cessation
Community-acquired pneumonia:
- Left lower lobe
- completed 5 days doxycycline
- Pulmonary toileting
CAD:
- Chronic, stable, history of PCI with multiple stents
- Continue aspirin and statin
DVT prophylaxis: Eliquis
CODE STATUS: Full code
Medically stable for discharge home with outpatient follow up recommendations.
Total Time Preparing Discharge ___40____ minutes including examination of the patient, summary of the hospital stay, instructions for continuing care to all relevant caregivers; and preparation of discharge records, prescriptions, and referral
forms if necessary.
Anticipated Discharge: Today
Subjective/Interval History
-
Date of Service: February 11, 2025
No acute distress overall reports feeling well. Denies new acute issues. Eager to go home.
Objective Data
-
Labs:
Laboratory Results
02/11/25
06:33
WBC 7.2
Hgb 16.7
Hct 48.8
Plt Count 119 L
Sodium 139
Potassium 4.0
Chloride 102
Carbon Dioxide 31 H
BUN 31 H
Creatinine 1.5 H
Glucose 94
Calcium 9.0
Vital Signs:
Vital Signs
Temp Pulse Resp BP Pulse Ox
98.2 F 75 18 127/80 96
02/11/25 08:18 02/11/25 08:18 02/11/25 08:18 02/11/25 08:18 02/11/25 08:18
I&O
02/10/25 02/11/25 02/12/25
06:59 06:59 06:59
Intake Total 330 / 330 530 / 530
Output Total 450 / 450
Balance -120 / -120 530 / 530
--- NOTE | 2025-02-11 10:26 | W.PN.CARDCBS ---
Addendum entered and electronically signed by Bernard Lewis MD 02/11/25 10:45:
I saw and examined the patient.
The Donor Services Technician's note was reviewed and I agree with the note.
Comment: Briefly, 79-year-old man past medical history of multivessel CAD, COPD, current smoker who presented for evaluation of progressively worsening dyspnea
Recent transthoracic echocardiogram revealed severely reduced left ventricular systolic function, EF 25 to 30%
Appears euvolemic on exam and filling pressures are reasonable based on invasive hemodynamics
Was referred for coronary angiography which showed LV dysfunction out of proportion to his underlying coronary artery disease suggestive more so of nonischemic cardiomyopathy.
Continue beta-michelle, ERIKA inhibitor, SGLT2, MRA - check outpatient BMP to reassess Cr
Remains atrial fibrillation which is a new diagnosis for him and may be contributing to his cardiomyopathy
Continue metoprolol for rate control
Eliquis for risk reduction of cardioembolic stroke
Tentative plan for SINDY/direct-current cardioversion today prior to discharged
We have discussed that ablation is likely the best long-term option
Rest per Koki Castro
Original Note:
Today's Communication / Plan
-
SINDY/CV today
follow Cr, may need to de-escalate GDMT
BMP in 1 week
OP cardiac follow up arranged
Impression / Plan
-
.
PCP: Daniel Davis
Strategic Partner Development Manager: Dr. Pramod Mckenna
Impression:
Presented 02/05/2025 with ongoing shortness of breath
Atrial fibrillation with rapid ventricular response, new diagnosis
Acute heart failure with reduced ejection fraction, proBNP 2480
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
Pneumonia
Coronary artery disease
History of STEMI 1999, 2010
s/p stent of proximal OM1 and circumflex 04/2000
s/p LAD STEVE x 2 mid to distal LAD 05/2011
s/p STEVE of distal RCA into RPDA 05/2011
Hypertension
Hyperlipidemia
BPH
COPD
Ongoing tobacco user
GERD
Lumbar spine stenosis
Echo 02/05/2025: EF 25 to 30%, global hypokinesis. Mild to moderate MR. Mild to moderate AI. Mild TR. PAP 40 mmHg. Dilated sinus of Valsalva 4.0 cm. Ascending aorta and aortic arch are normal in caliber.
Echo 09/15/2021: EF 45 to 50%. Global hypokinesis. Stage I DD. Mild to moderate AI. PAP 25 mmHg
Exercise nuclear stress test 07/23/2017: 6: 00, 7.0 METS, 96% maximum predicted heart rate. EKG negative for ischemia. Minimally reversible defect in lateral, inferolateral and apical segment consistent with infarction with minor residual ischemia
versus soft tissue attenuation
Plan:
- He presented to [facility] ER with complaints of SOB. He had been seen by his outpatient medical lab assistant with concern by x-ray for pneumonia. He was also found to be in A-fib with RVR which was new diagnosis and saw cardiology in office 02/04. At that
time Toprol was increased and Eliquis was started. He was arranged for SINDY/cardioversion 02/12, to allow for recovery from pneumonia. On admission he was found to be in heart failure and has been diuresed with improvement. Echocardiogram showed
new EF of 25 to 30%. Trops flat in 0.2 range. He underwent cardiac catheterization on 02/09/2025 which showed moderate nonobstructive coronary disease and did not require intervention. Cardiomyopathy felt to be primarily nonischemic.
- Continue p.o. Lasix 40 mg daily. Was not on diuretic therapy prior to admission. Creatinine up to 1.5 today. follow Cr, may need to hold diuretic
- Currently on Toprol, Aldactone, ACEI, farxiga. Could consider eventual transition to Entresto. 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
- Continue Eliquis, will need to follow Cr trends closely as is borderline for decreased dosing. also presently remains on aspirin 81mg daily.
- NPO for SINDY/CV today
- Will arrange for outpatient EP follow-up to discuss ablation in further detail
- BMP in 1 week
- LDL 37. continue crestor
- TSH within normal limits
- Smoking cessation encouraged
- OP cardiac follow up arranged
HPI 02/06/2025:
Patient is an 79-year-old male with past medical history significant for coronary artery disease with prior [place] and stenting of OM, circumflex, LAD and RCA, COPD with ongoing tobacco abuse, hypertension, hyperlipidemia, BPH and GERD who reports
progressively worsening dyspnea on exertion over the last 2 months. Some orthopnea/PND recently as well. No weight gain or edema, actually has lost weight. He was seen by outpatient medical lab assistant on 02/02/2025 who ordered chest x-ray which
demonstrated concern for pneumonia versus left basilar atelectasis. He was found to be in atrial fibrillation with rapid ventricular response which was new diagnosis. He was seen in outpatient cardiology office on 02/04/2025 and was started on
Eliquis with up titration of Toprol. Symptoms continued to get worse so he presented to emergency department 02/05/2025. He remained in atrial fibrillation with rapid ventricular response, proBNP noted to be elevated at 2480. He was provided 40 mg
IV Lasix and was started on IV diltiazem drip. Diltiazem gtt d/marly in am of 02/06 for hypotension/bradycardia and pauses. He underwent an echocardiogram which demonstrated newly reduced ejection fraction of 25 to 30%.
Currently patient denies CP, SOB, dizziness, palpitations, edema or orthopnea/PND.
Progress Note - Strategic Partner Development Manager
Subjective
Date of Service: February 11, 2025
for SINDY/CV today
Objective
Labs:
02/11/25 06:33
02/11/25 06:33
Labs
Hgb 16.7 g/dL (13.0-18.0) 02/11/25 06:33
Hct 48.8 % (39.0-52.0) 02/11/25 06:33
Plt Count 119 10^3/uL (130-400) L 02/11/25 06:33
APTT Cancelled 02/09/25 18:30
Sodium 139 mmol/L (135-145) 02/11/25 06:33
Potassium 4.0 mmol/L (3.5-5.1) 02/11/25 06:33
BUN 31 mg/dl (9-20) H 02/11/25 06:33
Creatinine 1.5 mg/dL (0.7-1.3) H 02/11/25 06:33
Glucose 94 mg/dl (70-99) 02/11/25 06:33
Vital Signs and I&O:
Vital Signs
Temp Pulse Resp BP Pulse Ox
98.2 F 75 18 127/80 96
02/11/25 08:18 02/11/25 08:18 02/11/25 08:18 02/11/25 08:18 02/11/25 08:18
Vital Signs
Temp Pulse Resp BP Pulse Ox
98.2 F 75 18 127/80 96
02/11/25 08:18 02/11/25 08:18 02/11/25 08:18 02/11/25 08:18 02/11/25 08:18
Intake & Output
02/09/25 02/10/25 02/11/25 02/12/25
07:59 07:59 07:59 07:59
Intake Total 1179 / 1179 330 / 330 530 / 530
Output Total 1225 / 1225 450 / 450
Balance -46 / -46 -120 / -120 530 / 530
Physical Exam
Physical Exam
GEN: No distress, awake, alert, oriented x3. ambulatory around room
HEENT: supple, anicteric, mmm, eomi
LUNGS: no audible wheezes
CV: Irreg on tele
ABD: soft, BS+, NT/ND
EXT: No cyanosis, clubbing, edema
NEURO: Gross non-focal
SKIN: Warm, pink, dry. No rash
[2025-02-11] MEDS: CARAFATE PO (12:36)
[2025-02-11 12:55] VITALS: BP 97/60
[2025-02-11 15:51] VITALS: BP 109/58
--- NOTE | 2025-02-11 16:30 | PTCARENOTE ---
Gave medication for primary nurse. The pt took without incident.
--- NOTE | 2025-02-11 17:14 | W.DCSUMMARY ---
Discharge Summary
Discharge Data
Date of Admission: 02/05/25
Date of Discharge: 02/11/25
-
Pending Results: No
Discharge Plan
-
Patient Disposition: Home (Routine Discharge)
Discharge Diagnosis/Procedures: Cardiac Catheterization
Chronic Heart Failure with Reduced Ejection Fraction
Mild Acute Kidney Injury
Atrial fibrillation underwent successful cardioversion
Left Lower Lobe Pneumonia completed antibiotic treatment
COPD
History Coronary Artery Disease
Condition: Fair
Diet: 2 Gram Sodium and Restrict fluids to 64 oz
Activity: As tolerated
Driving Restrictions: As prior to admission
Bathing Restrictions: None
Blood Work: Repeat proBNP/BMP in 1 week, results to be forwarded to primary care provider and Cardiology. Script provided to facilitate
Others Tests: Repeat Chest X-ray with primary care provider in 1 month of discharge.
Specialty Instructions: Weigh Daily- Call MD for wt gain/loss 3 lbs overnight/5 lbs in 1 week
Activity Restrictions/Additional Instructions:
Please follow up with primary care provider in 1 week of discharge and keep your appointment with Cardiology.
Antibiotic Doxycycline treatment for pneumonia completed. No need to continue taking at this time.
Farxiga Lisinopril and Aldactone have been prescribed for treatment Heart Failure with reduced Ejection fraction. Lisinopril and Aldactone also treat hypertension.
Home Metoprolol has been increased to twice a day for better heart rate control atrial fibrillation and treatment Heart Failure.
Lasix has been prescribed as needed for weight gain associated with heart failure- 40 mg daily to be take as needed for weight gain 3lbs overnight or 5 lbs in 1 week.
Please take medications as prescribed/recommended and follow up with primary care provider and/or other healthcare provider involved in your care for refills and/or further adjustment to your medication regimen as necessary.
It is highly advised that you abstain for smoking as usage will likely lead to worsening of your overall condition and increase risk for morbidity/mortality.
Instructions: *[facility] Heart Failure Instructions
Stand Alone Forms: DC Instructions- Cath/EP Lab
Referrals:
Daniel Davis DO [Family Provider, Family Practice] - in one week
Chen Gutierres CRNP [Specified Professional Personl, Cardiology] - 02/24/25 10:40 am
Referral Note: You have a cardiology follow up appointment at the [place] office with Dr. Mckenna's nurse practitioner, Chen. Please call with questions.
Prescriptions:
New
spironolactone 25 mg Tablet
12.5 mg PO DAILY Qty: 15 0RF
dapagliflozin propanediol 10 mg Tablet
10 mg PO DAILY Qty: 30 0RF
lisinopril 5 mg Tablet
5 mg PO BID Qty: 60 0RF
furosemide [Lasix] 40 mg tablet
40 mg PO DAILY PRN (Reason: Weight gain) Qty: 30 0RF
Rx Instructions:
Use if gain 3 lbs overnight or 5 lbs in a week
Continued
multivitamin Tablet
1 tab PO DAILY
omeprazole 20 mg capsule,delayed release(DR/EC)
20 mg PO DAILY
finasteride 5 mg tablet
5 mg PO DAILY
ezetimibe [Zetia] 10 mg tablet
10 mg PO DAILY
rosuvastatin 10 mg Tablet
10 mg PO DAILY
Eliquis 5 mg Tablet
5 mg PO BID
Trelegy Ellipta 100-62.5-25 mcg Blister With Device
1 inh INHALATION DAILY
Changed
metoprolol succinate 25 mg tablet extended release 24 hr
25 mg PO BID Qty: 60 0RF
Discontinued
doxycycline hyclate 100 MG capsule
100 mg PO Q12
Discharge Orders:
Discharge Patient (As Directed); Ordered 02/11/25
Ordered By: Stefaon Dias
Discharge Date and Time
Print Language: JAPANESE
--- NOTE | 2025-02-12 15:37 | W.HF.CON ---
Heart Failure
- LV Function
Left ventricular function study result: LV Ejection fraction </= 35%
Ejection Fraction Percentage: 20-25
- ARNI
Patient already on ARNI: No
Heart Failure ARNI Contraindication: Acute Renal Failure
- ACEI/ARB
Patient already on ACEI/ARB: Yes
- Beta Javi
Patient already on Evidence Based Beta Javi: Yes
- Mineralocorticord Receptor Antagonist
Patient already on MRA: Yes
- SGLT-2 Inhibitor
Patient already on SGLT-2 Inhibitor: Yes
- Afib Anticoagulation
Patient already on Anticoagulation for Afib: Yes
- NYHA CHF Classification
NYHA CHF Classification Level: Class III - Symptoms w/ min exertion, interferes w/ nml daily activity (COPD)
- ACC/AHA Stage
ACC/AHA Stage: Stage C: Symptomatic Heart Failure
== END 2025-02-11 18:04 | disposition home or self-care (01) | DRG 286 ==
LOC: 4 EAST ACU 20:18
PROVIDERS: Internal Medicine; Internal Medicine Cardiovascular Disease; Nuclear Medicine Nuclear Cardiology; Nurse Practitioner; Physician Assistant; Physician Assistant Medical; ADMITTING PHYSICIAN Internal Medicine; ATTENDING PHYSICIAN Internal Medicine; EMERGENCY PHYSICIAN Emergency Medicine; FAMILY PHYSICIAN Family Medicine; OTHER PHYSICIAN Internal Medicine Cardiovascular Disease; REFERRING PHYSICIAN Internal Medicine Cardiovascular Disease
PROC: 4A033BC Measurement of Arterial Pressure, Coronary, Percutaneous Approach (ICD-10-PCS; 2025-02-09)
PROC: B2161ZZ Fluoroscopy of Right and Left Heart using Low Osmolar Contrast (ICD-10-PCS; 2025-02-09)
PROC: 4A023N8 Measurement of Cardiac Sampling and Pressure, Bilateral, Percutaneous Approach (ICD-10-PCS; 2025-02-09)
PROC: B2111ZZ Fluoroscopy of Multiple Coronary Arteries using Low Osmolar Contrast (ICD-10-PCS; 2025-02-09)
PROC: 5A2204Z Restoration of Cardiac Rhythm, Single (ICD-10-PCS; 2025-02-11)
PROC: B24BZZ4 Ultrasonography of Heart with Aorta, Transesophageal (ICD-10-PCS; 2025-02-11)
DX: I48.19 Other persistent atrial fibrillation (principal); I50.23 Acute on chronic systolic (congestive) heart failure; J18.9 Pneumonia, unspecified organism; J44.0 Chronic obstructive pulmonary disease with (acute) lower respiratory infection; N17.9 Acute kidney failure, unspecified; I11.0 Hypertensive heart disease with heart failure; F17.200 Nicotine dependence, unspecified, uncomplicated; Z79.01 Long term (current) use of anticoagulants; I25.10 Atherosclerotic heart disease of native coronary artery without angina pectoris; Z95.5 Presence of coronary angioplasty implant and graft; Z82.49 Family history of ischemic heart disease and other diseases of the circulatory system; E78.00 Pure hypercholesterolemia, unspecified; I25.2 Old myocardial infarction; Z71.6 Tobacco abuse counseling; Z79.82 Long term (current) use of aspirin; Z79.899 Other long term (current) drug therapy
CPT/HCPCS: 80048; 80053; 80061; 83735; 83880; 84100; 84443; 84484; 85025; 85027; 85347; 85730; 92960; 93005; 93306; 93312; 93320; 93325; 93460; 93799; 93971; 94640; 96365; 96366; 99152; 99153; 99291; C1769; C1894; Q9967

== ENCOUNTER → 2025-03-18 14:14 | Outpatient (REF) | payer MEDICARE, SELFPAY | LOC: HWRAD 14:14 | PROVIDERS: ATTENDING PHYSICIAN Internal Medicine Critical Care Medicine; FAMILY PHYSICIAN Family Medicine | DX: R06.02 Shortness of breath (principal); J44.9 Chronic obstructive pulmonary disease, unspecified; I10 Essential (primary) hypertension; I50.20 Unspecified systolic (congestive) heart failure; M79.605 Pain in left leg; M79.604 Pain in right leg | CPT/HCPCS: 93970 ==

== ENCOUNTER → 2025-03-30 10:03 | Outpatient (REF) | payer MEDICARE, SELFPAY ==
[2025-03-30 12:03] LABS: Hematocrit 49.0 % (39.0-52.0); Hemoglobin 16.5 g/dL (13.0-18.0); INR 1.92; Mean Corp Hgb Conc. 33.7 g/dL (33.0-37.0); Mean Corpuscular Volume 97.4 fL (80.0-94.0); Nucleated Red Blood Cells % 0 % (-); PT 22.5 Sec (11.4-14.6); Platelet Count 152 10^3/uL (130-400); Red Cell Dist. Width 13.6 % (11.5-14.5)
[2025-03-30 12:12] LABS: ALT (SGPT) 38 U/L (0-50); AST (SGOT) 31 U/L (17-59); Albumin 4.0 g/dl (3.5-5.0); Alkaline Phosphatase 76 U/L (38-126); Blood Urea Nitrogen 20 mg/dl (9-20); Calcium 9.3 mg/dl (8.4-10.2); Carbon Dioxide 32 mmol/L (22-30); Chloride 106 mmol/L (98-107); Glucose 104 mg/dl (70-99); Magnesium 1.9 mg/dl (1.6-2.3); Potassium 4.6 mmol/L (3.5-5.1); Sodium 144 mmol/L (135-145); Total Protein 6.7 g/dl (6.3-8.2); eGFR 55.19
== END ==
LOC: SDSPAT 10:03
PROVIDERS: ATTENDING PHYSICIAN Internal Medicine Cardiovascular Disease; FAMILY PHYSICIAN Family Medicine; OTHER PHYSICIAN Internal Medicine Cardiovascular Disease
DX: I48.0 Paroxysmal atrial fibrillation (principal)
CPT/HCPCS: 36415; 71046; 80053; 83735; 83880; 85025; 85610; 86850; 86900; 86901; 93005

== ENCOUNTER 2025-04-03 07:34 | Day surgery (SDC) | payer MEDICARE, SELFPAY ==
[2025-03-30 10:44] VITALS: BMI 27.2
[2025-04-03] VITALS (11 sets, daily range): BP systolic 75–153; BP diastolic 59–91; BMI 25.5
[2025-04-03] MEDS: DUONEB 3 ML INH (08:50)
[2025-04-03 08:51] LABS: Blood Urea Nitrogen 20 mg/dl (9-20); Calcium 8.5 mg/dl (8.4-10.2); Carbon Dioxide 32 mmol/L (22-30); Chloride 102 mmol/L (98-107); Estimated Creatinine Clearance 39 ml/min; Glucose 115 mg/dl (70-99); Potassium 3.7 mmol/L (3.5-5.1); Sodium 141 mmol/L (135-145); eGFR 50.49
--- NOTE | 2025-04-03 08:54 | PTCARENOTE ---
PT WITH FINE EXP WHEEZE THROUGHOUT POSTERIOR LUNG B/L. PT DID NOT TAKE HIS TRELEGY THIS AM. PT ORDERED AND RECEIVED DUONEB PER DR SERNA
[2025-04-03 11:19] LABS: ACT-LR - POC 348 Seconds (116-155)
[2025-04-03 11:43] LABS: ACT-LR - POC 343 Seconds (116-155)
--- NOTE | 2025-04-03 11:55 | ITS.CL.ABL ---
Body Fitter - Ablation
Ablation
Procedure Report:
ELECTROPHYSIOLOGY ABLATION STUDY
DATE:: April 03, 2025�����������������������������REFERRING: Dr. Pramod Mckenna
INDICATION: Persistent supraventricular tachycardia in the form of atrial fibrillation.� Tachycardia induced cardiomyopathy
HISTORY: See H and P.��As above
ANTIARRHYTHMIC DRUG: Metoprolol
PRE-PROCEDURE SINDY: No atrial thrombus
PRESENTING RHYTHM: Atrial fibrillation
'TIME-OUT':��called and confirmed.
SEDATION/ANESTHESIA:��provided via the anesthesia department using general anesthesia (LMA).
INTRAVENOUS/ARTERIAL ACCESS:
Right femoral venous -8Fr
Left femoral venous - 8 Fr, 6 Fr
Ultrasound guidance for bilateral femoral vein access was utilized by me to obtain access with demonstration of normal anatomy
CHADS-VASC Score:
HAS-Bled Score
PROCEDURE:
1.��A decapolar CS catheter was placed within the CS for mapping and pacing.��This was also used as the reference catheter for the 3-D map.
2. The intracardiac ultrasound catheter was positioned in the RA to identify the FO for targeting of transseptal puncture, assist��in identification of the pulmonary vein ostia, monitoring pre and post ablation pulmonary vein flow velocities,
monitoring for 'bubble' formation during RF application as a sign of thermal injury,��and to monitor for pericardial effusion during mapping and ablation procedure.���Left atrial size, LV ejection fraction, and pulmonary vein flows were monitored
pre and post ablation procedure. The other valves were inspected and found to be free of significant regurgitation or stenosis. Ejection fraction was noted to be 20% preprocedure and to be approximately 25% in sinus rhythm post procedure.
3.��Half of the calculated heparin bolus was administered prior to the first transeptal puncture.��Transseptal puncture was performed to diagnose RA and LA pressure so that safety of LA mapping and ablation could be further assessed, and to access
the left atrium and pulmonary veins for mapping and ablation.��This entailed advancing an 16.8 Turkmen sheath, RF wire and sheath with dilator into the superior vena cava and withdrawing both (monitoring intracardiac ultrasound, fluoroscopy and tip
pressure) with the tip oriented toward the atrial septum.��The fossa ovalis was engaged (indicated by sudden displacement of the sheath tip as well as tenting of the fossa seen on intracardiac ultrasound).��Left atrial access required a pass with
the [place] needle extended.��Left atrial catheter position was confirmed by pressure monitoring (RA mean pressure 6 mm Hg and LA mean presure 20 mm Hg), LA saturation (99%),��as well as fluoroscopy.��The sheath was advanced over the dilator
and positioned in the left atrium.��This procedure was repeated for the Agilis sheath.��The remainder of the calculated heparin bolus was administered and heparin was
infused to maintain ACT at 300 -350 seconds throughout the case.
4.��RA pacing was performed via the proximal decapolar poles and LA pacing was performed via the distal decapolr poles.
5. A quadrapolar catheter was first positioned at the His position for His Bundle recording which was tagged via the 3-D Navex sytem, and then passed to the RVA for RV pacing and recording.
6. The grid and Penta splint was placed in each of the LIPV, LSPV, RSPV and the RIPV.��
7.��Next, a 3-D map was created using Navex.���A 3-D reconstructed CT image was compared to the 3-D Navex map to assist in anatomic interpretation, mapping and ablation.��The CT image and the NavX image were fused.
8. A total of 52 lesions were given and all of in basket pose to the pulmonary veins with entrance block achieved. Atrial fibrillation persisted after pulmonary vein isolation so in flower pose roofline floor line and posterior wall substrate
ablation were performed in the left atrial posterior wall rendering the posterior wall roof and floor with entrance block and electrical silence. The patient failed at 200 J and a 300 J synchronized biphasic shock and a 360 J synchronized biphasic
shock with delayed break restored sinus rhythm with frequent multifocal APD's. EP study with burst atrial pacing and extrastimuli did not induce any other tachyarrhythmias. We plan to infuse 75 mg of amiodarone over 30 minutes for suppression of
ectopy.
9. Normal sinus and AV node function noted.
TOTAL FLOURO TIME: 12.1 minutes
TOTAL RF DURATION: 0 minutes
REVERSAL OF HEPARIN: 35 mg of protamine, slow IV administration
COMPLICATIONS:
None
Intracardiac US shows no pericardial effusion post ablation.
SUMMARY:��
Complex left atrial mapping and ablation.
Isolation of all 4 pulmonary veins as well as the roof posterior wall and floor of the left atrium as above.
RECOMMENDATIONS:
1. Ambulate in 4 hours
2. Resume anticoagulation
3.� Will add low-dose amiodarone 200 mg daily for arrhythmia suppression as the patient has a tachycardia due to cardiomyopathy
4.��Repeat echo in 3 months and return to work in 5 days
Copy to: Dr. Pramod Mckenna
[2025-04-03] MEDS: PROSCAR 10 MG PO (12:52)
[2025-04-03] MEDS: PACERONE 200 MG PO (12:53)
[2025-04-03] MEDS: LASIX 20 MG IV (12:54)
[2025-04-03] MEDS: ANESTHETIC LOZENGE 1 LOZENGE PO (15:37)
--- NOTE | 2025-04-03 15:54 | W.PN.UPDATE ---
Update Note
Progress Note Update
80 yo WM s/p PVI (same day). He denies cp, sob, mild sore throat, EKG SR with runs of PAT and occ PVC's, PAC's, b/l groins c/d/i, no HT, soft. He will resume Xarelto tonight. He was started on Amiodarone 200mg daily for his PAT. He did recieve lasix
20iv and K was repleted. He is voiding. Activity restricctions reviewed. He will f/u Dr. Mckenna in 3 mo. He is for d/c home after 445p if groin stable.
[2025-04-03] MEDS: KCL 40 MEQ PO (16:15)
== END 2025-04-03 16:55 | disposition home or self-care (01) ==
LOC: CATH 07:34
PROVIDERS: Physician Assistant Medical; ATTENDING PHYSICIAN Internal Medicine Cardiovascular Disease; FAMILY PHYSICIAN Family Medicine; OTHER PHYSICIAN Internal Medicine Cardiovascular Disease
DX: I48.19 Other persistent atrial fibrillation (principal); K21.9 Gastro-esophageal reflux disease without esophagitis; I25.2 Old myocardial infarction; J44.9 Chronic obstructive pulmonary disease, unspecified; N40.0 Benign prostatic hyperplasia without lower urinary tract symptoms; E78.5 Hyperlipidemia, unspecified; I25.10 Atherosclerotic heart disease of native coronary artery without angina pectoris; I11.0 Hypertensive heart disease with heart failure; I48.91 Unspecified atrial fibrillation; Z72.0 Tobacco use; J84.10 Pulmonary fibrosis, unspecified; T82.855D Stenosis of coronary artery stent, subsequent encounter; Y83.8 Other surgical procedures as the cause of abnormal reaction of the patient, or of later complication, without mention of misadventure at the time of the procedure; I42.8 Other cardiomyopathies; I47.10 Supraventricular tachycardia, unspecified; I49.1 Atrial premature depolarization; I50.22 Chronic systolic (congestive) heart failure; Z79.899 Other long term (current) drug therapy; Z95.5 Presence of coronary angioplasty implant and graft; Z79.01 Long term (current) use of anticoagulants; Z87.01 Personal history of pneumonia (recurrent)
CPT/HCPCS: C1732; C1894; C1730; C1769; C1892; C1759; 80048; 85347; 86900; 86901; 93005; 93656; 93657; 94640; C1733; C1766

== ENCOUNTER → 2025-07-23 18:18 | Outpatient (REF) | payer MEDICARE, SELFPAY | LOC: RAD 18:18 | PROVIDERS: ATTENDING PHYSICIAN Specialist; FAMILY PHYSICIAN Family Medicine | DX: M79.672 Pain in left foot (principal); G60.3 Idiopathic progressive neuropathy | CPT/HCPCS: 73620 ==

== ENCOUNTER → 2025-08-06 10:06 | Outpatient (REF) | payer MEDICARE, SELFPAY | LOC: RCS 10:06 | PROVIDERS: ATTENDING PHYSICIAN Nurse Practitioner; FAMILY PHYSICIAN Family Medicine | DX: I48.0 Paroxysmal atrial fibrillation (principal); I42.8 Other cardiomyopathies | CPT/HCPCS: 93306 ==